=== PATIENT | female | born 1980 | race Caucasian/White ===

== ENCOUNTER 2016-10-03 12:06 | Inpatient (IN) | payer OTHER, MEDICARE ==
[~2016-10-03] VITALS: Ht 163.8 cm; Wt 70.5 kg
[~2016-10-03 12:06] MED LIST: BRIM5DRO LEFT_EYE; CLON0.252 PO; HYDR2TAB28 PO; PRAZ1CAP2 PO; PRED5DRO6 LEFT_EYE; PROM25TA14 PO; TIZA4TAB4 PO; TRAM50TA2 PO
[2016-10-03 12:14] VITALS: BP 132/77; PULSE 127; RESP 24; O2SAT 98
--- NOTE | 2016-10-03 12:35 | ED.REPORT ---
HPI-General Illness Date of Service Oct 03, 2016 ED Provider: Nallely Fong MD Patient is a 35 year old female w/ a hx of fibromyalgia who presents to the ED due to intractable vomiting and diarrhea for the past 2 days. She now reports she's, "not keeping anything down and feels like she's going to ." She was on 6mg/day Clonazepam for 3 years and has been titrating off it for the past year. She is now down to 1.25 mg Clonazepam a day, working closely with her PCP to monitor her withdrawal. She came in 4 months ago for nausea, vomiting, and stomach pain. She was hospitalized for a few nights, staff was able to normalize her symptoms through IV, and she was able to go home. Since then, she has had intermittent days of vomiting and nausea. For the past 2 weeks she has had consistent vomiting and diarrhea and has not been able to keep any medications down. Promethazine usually helps to combat her nausea. She is currently on Dilaudid (4x/day), Tramadol (50mg 4x/day), and clonazepam. She cannot remember the last time she urinated. Her PCP is Dr. Ayse Maurice at [facility]. Nursing Notes Stated Complaint: VOMITING/DIARRHEA/WITHRAWL FROM MEDS Chief Complaint: Female Abdominal Pain Nursing Notes Reviewed: Yes Allergies: Coded Allergies: acetaminophen (Verified Allergy, Unknown, 10/03/16) droperidol (Verified Allergy, Unknown, 10/03/16) ketorolac (Verified Allergy, Unknown, 10/03/16) metoclopramide (Verified Allergy, Unknown, 10/03/16) ondansetron (Verified Allergy, Unknown, it doesn't help, 10/03/16) prochlorperazine (Verified Allergy, Unknown, RECEIVED PROMEHTAZINE X1 , 10/03/16) diphenhydramine (Verified Adverse Reaction, Severe, exacerbates migraines , 10/03/16) Uncoded Allergies: ANTIHISTAMINE (Allergy, Unknown, 04/12/14) Scheduled Brimonidine Tartrate/Timolol (Combigan Eye Drops) 5 Ml Drops 1 DROP BOTH_EARS QID Clonazepam ODT (Clonazepam ODT) 0.25 Mg Tablet 0.75 MG PO BID Hydromorphone (Hydromorphone) 2 Mg Tablet 2 MG PO QID Prazosin (Prazosin) 1 Mg Capsule 4 MG PO HS Prednisolone Acetate (Prednisolone Acetate) 5 Ml Drops.susp 1 DROP LEFT_EYE QID Tizanidine (Tizanidine) 4 Mg Tablet 8 MG PO HS Tramadol (Tramadol) 50 Mg Tablet 50 MG PO QID Scheduled PRN Promethazine (Promethazine) 25 Mg Tablet 25 MG PO Q6H PRN PRN For Nausea General Time Seen by MD: 12:33 Chief Complaint Vomiting Hx Obtained From: Patient Arrived By: Walk-in Sudden in Onset?: Yes Onset Occurred: 2 days ago Symptom Duration: Since onset Location: : Abdomen Severity: Current: Moderate Recent Healthcare: Recent doctor visit, Recent hospitalization Similar Sx Previous: Yes Past Medical History Past Medical History Notes: Prior notes: PCP: Dr. Ayse Joel, fibromyalgia and chronic pain followed by a pain specialist previously on methadone but was taken off. Medications: Clonazepam- was on 2 TID, tapered to .75 BID Baclofen three times a day Prazosin 4x 1mg at bedtime 50mg tramadol 4x a day 5mg melatonin at night for sleep when needed 25mg promethazine Past Medical History Chronic pain on chronic opiates Fibromyalgia Kidney stones-1 requiring a surgery Colitis Migraines. Corneal dystrophy. PTSD. Panic disorder. Past Surgical History Bilateral cornea transplant 2014 Negative upper endoscopy in July 2015 by GI -Kidney stone removal 2005 -Right Retinal surgery 2014 -Tubal ligation -Cholecystectomy -Exploratory surgery to remove scar tissue from -Multiple C-sections Family History Family history of colitis (cousin) Reports: Diabetes mellitus Smoking History Former Smoker Social History Alcohol Use: "Social" Drug Use: Denies drug use Other Social History: Frequent ED visitor, Lives with children Ambulatory Status Independent Review of Systems Full Review of Systems Constitutional: Reports: Fatigue GI: Reports: Diarrhea, Nausea, Vomiting Complete sys rev & neg: except as marked. Physical Exam Vital Signs Vital Signs Date Time Temp Pulse Resp B/P Pulse Ox O2 Delivery O2 Flow Rate FiO2 10/03/16 12:14 37.0 127 24 132/77 98 Room Air Initial VS: Reviewed ENT: Mucous membranes moist, Conjunctiva normal, No scleral icterus Neck: Supple, Non-tender, Full range of motion Respiratory: Breath sounds normal, Clear to auscultation, No respiratory distress Abdomen / GI: Soft, Non-tender, No guarding, No rebound, No distention Back: No CVA tenderness Extremities: Vascular intact, Neuro intact, No swelling, No tenderness Skin: Warm, Dry, No cyanosis Neurologic: Alert, Oriented, Nonfocal Psychiatric: Mood/affect normal, Behavior normal, Normal thought content General/Constitutional: Awake, Alert, Cooperative Behavior: Positive: Tearful muscles twitching tremulous Head / Eyes: Atraumatic, Normocephalic pupils wildly diilated Heart Sounds / Murmur: Positive: Systolic murmur present.. (III/, early, harsh) heart rate is 130 Interpretation & Diagnostics Lab Results Interpretation Result Diagram: 10/03/16 1250 10/03/16 1250 Test 10/03/16 12:50 10/03/16 14:40 White Blood Count 9.0th/mm3 (3.8-10.1) Red Blood Count 4.69mil/mm3 (3.90-5.20) Hemoglobin 14.5g/dL (12.0-15.6) Hematocrit 42.4% (35.0-46.0) Mean Corpuscular Volume 90.4fL (81-100) Mean Corpuscular Hemoglobin 30.9pg (27.0-35.0) Mean Corpuscular Hemoglobin Concent 34.2% (32.0-37.0) Red Cell Distribution Width 12.4% (12.3-15.4) Platelet Count 305bil/L (150-400) Neutrophils (%) (Auto) 90.4% (40-74) Lymphocytes (%) (Auto) 6.2% (14-46) Monocytes (%) (Auto) 2.8% (4-12) Eosinophils (%) (Auto) 0.1% (0-5) Basophils (%) (Auto) 0.3% (0-3) Sodium Level 139mEq/L (134-144) Potassium Level 4.0mEq/L (3.5-5.2) Chloride Level 102mEq/L (97-108) Carbon Dioxide Level 22mmol/L (18-29) Blood Urea Nitrogen 6mg/dL (6-20) Creatinine 0.84mg/dL (0.57-1.00) Estimat Glomerular Filtration Rate 110mL/min (>59) Glucose Level 136mg/dL (60-99) Calcium Level 8.7mg/dL (8.5-10.1) Magnesium Level 1.9mg/dL (1.6-2.6) Total Bilirubin 0.4mg/dL (0.0-1.2) Aspartate Amino Transf (AST/SGOT) 22U/L (0-50) Alanine Aminotransferase (ALT/SGPT) 47U/L (0-32) Alkaline Phosphatase 107U/L (25-150) Total Protein 7.2g/dL (6.4-8.4) Albumin 4.5g/dL (3.4-5.0) Lipase 31U/L (13-60) Hold Peraza Top Tube Received (Received) Hold Urine Received (Received) Re-Eval/Medical Decision Med Decision/Clinical Course Presents with intractable nausea vomiting diarrhea. Symptoms for 4 days. has not been able to keep any of her routine pain medication or anxiety medication down. Now having exacerbated symptoms due to narcotic and benzodiazepine withdrawal. No evidence of drug-seeking behavior, early refills on medications, and prescriptions per one provider without early or lost prescriptions. Tried backup plan and close workup with her primary care provider to avoid coming to the ER and at this 0.48 hours with no void and continued diarrhea and is feeling miserable. In the emergency room she is given 2 L of fluid IV Phenergan and IV Ativan and IV Dilaudid continues to have vomiting and diarrhea. After 4 hours opted for admission overnight with continued treatment is oral administration of medications able to keep fluids down hopefully home within 24 hours Consultation : Consulted With: Hospitalist Call Returned at: 16:33 Product Safety Associate: Will see patient, Agrees with plan, Accepts admit Counseled Regarding: Diagnosis, Lab results, Need for follow-up, When/why to return to ED Discharge & Departure Primary Impression: Nausea, vomiting, and diarrhea Additional Impressions: Dehydration Abdominal pain Disposition: ADMITTED TO HOSPITAL Discharge Condition All VS Reviewed: Yes Condition: Stable Referrals: NOPCP (PCP) Scribe Attestation Portion of this note were transcribed by Evelin Pantoja. I, Dr. Fong, personally performed the history, physical exam, and medical decision-making: I reviewed and confirmed the accuracy for the information in the transcribed note. Signed by: glenn White, 2/24/17 1500 copies to: Ayse Joel PA-C, Shawna L MD Oct 03, 2016 12:35 EVELIN PANTOJA Oct 03, 2016 13:24
[2016-10-03] MEDS ORDERED: 0.9% Sodium Chloride 1,000 ML IV ONE ×3 (13:02→16:25)
[2016-10-03] MEDS ORDERED: Promethazine Inj 25 MG in Dextrose 5%-Pha MIX 50 ML IV ONE ×2 (13:05→16:25)
[2016-10-03] MEDS ORDERED: HYDROmorphone 1 mg/mL Inj IVPUSH ONE ×2 (13:05→16:45)
[2016-10-03 13:13] LABS: BASOPHILS % (AUTO) 0.3 % (0-3); EOSINOPHILS % (AUTO) 0.1 % (0-5); MONOCYTES % (AUTO) 2.8 % (4-12); Mean Corpuscular Hemoglobin 30.9 pg (27.0-35.0); Mean Corpuscular Volume 90.4 fL (81-100); NEUTROPHILS % (AUTO) 90.4 % (40-74); Platelet Count 305 bil/L (150-400)
[2016-10-03 13:35] LABS: Magnesium 1.9 mg/dL (1.6-2.6)
[2016-10-03] MEDS: HYDROmorphone 1 mg/mL Inj IVPUSH PRN ×3 (14:43→21:37)
[2016-10-03] MEDS ORDERED: Ondansetron 2 mg/mL 2 mL Inj IVPUSH PRN (16:25)
[2016-10-03] MEDS ORDERED: HYDROmorphone Inj 2 MG in 0.9% Sodium Chloride 100 ML IV ONE (16:25)
[2016-10-03] MEDS ORDERED: Alum-Mag Hydrox-Simeth 30 mL Suspension PO PRN ×2 (16:25→20:35)
[2016-10-03] MEDS ORDERED: KLO5T PO (17:36)
[2016-10-03] MEDS ORDERED: ASPI-1148 PO (17:40)
[2016-10-03] MEDS ORDERED: CLON0.1T PO (17:41)
[2016-10-03 18:23] VITALS: BP 118/77; PULSE 79; RESP 20; O2SAT 99
[2016-10-03 19:22] VITALS: BP 106/73; PULSE 67; RESP 20; O2SAT 100
[2016-10-03] MEDS ORDERED: Polyethylene Glycol (PEG) 17 Gm Powder PO PRN (20:35)
[2016-10-03] MEDS ORDERED: cloNIDine 0.1 mg Tablet PO PRN (20:40)
--- NOTE | 2016-10-03 20:56 | PCM.HPMED ---
Subjective Date of Service Oct 03, 2016 Primary Provider: Admitting Physician: Anh Senior MD Primary Care Physician: Ayse Joel PA-C Attending Physician: Anh Senior MD Chief Complaint: Nausea, vomiting, diarrhea. Worsening chronic pain since unable to keep medications down History of Present Illness: Patient has had intermittent problems with nausea vomiting and diarrhea past. Now the last 2 weeks she is having this intermittently and is wondering if it is related to her clonazepam taper. She saw her primary care physician 3 days ago heart rate but thought she was doing okay overall. Then 2 days ago her nausea vomiting and diarrhea returned and she has been unable to keep fluids down. She says the last time she urinated was 2 days ago. She received, according to her, 3 L of IVF in the emergency Department and is now making urine but not as much as she would expect, so she feels she is still quite dehydrated. She says she was hospitalized last May for a similar problem and the IV Dilaudid and IV Ativan and IV Phenergan quite effective. She feels this time is a little bit different than last time, she feels worse, diarrhea is worse. Her stools are liquid and brown but no blood has been noted. She has not had any fever, chills, sweats. Her chronic pain is worse especially since she cannot keep down her oral Dilaudid. She has chronic pain "all over" but does not feel that it is same as flulike symptoms. No else at home is ill and she has not been traveling. She says she has severe dystonic reactions to almost all nausea medication and Phenergan is the only one she can tolerate. Review of Systems: Unremarkable except as above Allergies Coded Allergies: acetaminophen (Verified Allergy, Unknown, 10/03/16) droperidol (Verified Allergy, Unknown, 10/03/16) ketorolac (Verified Allergy, Unknown, 10/03/16) metoclopramide (Verified Allergy, Unknown, 10/03/16) prochlorperazine (Verified Allergy, Unknown, RECEIVED PROMEHTAZINE X1 , 10/03/16) diphenhydramine (Verified Adverse Reaction, Severe, exacerbates migraines , 10/03/16) Uncoded Allergies: ANTIHISTAMINE (Allergy, Unknown, 04/12/14) Home Medications Dilaudid 2 mg orally 4 times a day Prazosin 5 mg at bedtime Tizanidine 8 mg at bedtime and occasionally another 4 mg in the middle of the night Clonazepam, 0.5 mg in the morning and 0.75 mg in the evening Phenergan 25 mg orally every 6 hours when necessary nausea and vomiting Tramadol 50 mg 4 times a day Prednisolone eyedrops 1 drop left eye 3 times a day Timolol/Brimonidine eyedrops 1 drop in the left eye twice a day PMH Chronic pain on chronic narcotics Migraines Episodic intractable nausea and vomiting Corneal dystrophy Fibromyalgia PTSD Panic disorder and chronic anxiety She says she has been told she has a heart murmur Surgical History 2 C-sections Cholecystectomy Corneal transplant Exploratory laparotomy for lysis of adhesions Tubal ligation Social History Occupation: disabled Hx Alcohol Use: No Hx Substance Use: No (prescription narcotics dependance) Smoking Status: Former Smoker Living Arrangement: with Family (, has 3 children ages 13, 15 and 18) Exam Vital Signs Vital Sign - Last Date Time Temp Pulse Resp B/P Pulse Ox O2 Delivery O2 Flow Rate FiO2 10/03/16 19:22 36.9 67 20 106/73 100 Room Air Exam General: Alert and oriented, mild anxiety, mild hand tremor HEENT: unremarkable Neck: No JVD, carotids 2+ Heart: Regular Lungs: Clear Abdomen: Soft, non-tender, normal bowel tones, no apparent masses or hepatosplenomegaly Extremities: No pedal edema Neuro: No apparent deficit Lab and Diagnostics Result Diagram: 10/03/16 1250 10/03/16 1250 Assessment & Plan Nausea, vomiting, and diarrhea which have been intermittent problems for her. So far no evidence of viral gastroenteritis or other acute, infectious disease. Her urinalysis is still pending. Once vomiting progresses and she is not able to keep down her oral Dilaudid and situation is complicated by withdrawal symptoms. She is being admitted for IV fluids, and will give IV Dilaudid, IV Ativan, IV Phenergan which she feels was quite effective during her last hospitalization in May. VTE Mechanical Devices: Intermittant Pneumatic CD Anh Senior MD Oct 03, 2016 20:56 Anh Senior MD Oct 03, 2016 20:56
[2016-10-03] MEDS: 0.9% Sodium Chloride 1,000 ML IV SCH (21:02)
[2016-10-03] MEDS: Promethazine Inj 25 MG in Dextrose 5%-Pha MIX 50 ML IV PRN (21:58)
[2016-10-03] MEDS: PrednisoLONE 1% 5 mL Ophthalmic Suspension LEFT_EYE SCH (22:01)
[2016-10-03] MEDS: Brimonidine-Timolol 5 mL Ophthalmic Solution LEFT_EYE SCH ×2 (23:00→23:40)
[2016-10-03 23:33] VITALS: BP 116/73; PULSE 88; RESP 20; O2SAT 98
[2016-10-04] MEDS: HYDROmorphone 1 mg/mL Inj IVPUSH PRN ×7 (00:43→21:34)
--- NOTE | 2016-10-04 03:37 | NUR ---
Pain/Emesis Pt. had an episode of emesis earlier in shift. Pt. threw up PO Dilaudid and Tramadol. Pt. was given IV Phenagren and IV Dilaudid. Pt. reported less pain and nausea. Will continue to monitor.
[2016-10-04] MEDS: Promethazine Inj 25 MG in Dextrose 5%-Pha MIX 50 ML IV PRN ×4 (04:02→23:00)
[2016-10-04 05:25] VITALS: BP 96/59; PULSE 81; RESP 20; O2SAT 97
[2016-10-04] MEDS: 0.9% Sodium Chloride 1,000 ML IV SCH ×2 (07:50→18:33)
[2016-10-04] MEDS: Famotidine Inj 20 MG in IV Premix 1 EACH IV SCH ×2 (07:52→20:26)
[2016-10-04] MEDS: PrednisoLONE 1% 5 mL Ophthalmic Suspension LEFT_EYE SCH ×3 (08:09→20:19)
[2016-10-04] MEDS: Brimonidine-Timolol 5 mL Ophthalmic Solution LEFT_EYE SCH (08:09)
--- NOTE | 2016-10-04 10:38 | NUR ---
Case Management D: [facility] prescription monitoring information placed in chart. Dr Judy kauffman.
--- NOTE | 2016-10-04 14:10 | PCM.PNMED ---
Subjective Date of Service Oct 04, 2016 Subjective Patient still complaining of abdominal pain and intermittent nausea vomiting. She notes that the loose stool has subsided. Exam Vital Signs Vital Sign - Last Date Time Temp Pulse Resp B/P Pulse Ox O2 Delivery O2 Flow Rate FiO2 10/04/16 05:25 36.5 81 20 96/59 97 Room Air Intake and Output 10/03/16 10/03/16 10/04/16 Cumulative From/Thru 14:59 22:59 06:59 10/03/16 12:14 - 10/04/16 05:54 Intake Total 1000 ml 2000 ml 877 ml 3877 ml Balance 1000 ml 2000 ml 877 ml 3877 ml IV Total 1000 ml 2000 ml 877 ml 3877 ml Exam Constitutional: Middle-aged female in mild discomfort Head: Normocephalic atraumatic Chest: Clear to auscultation Cor: Regular rate and rhythm S1-S2 without murmur Abdomen: Soft, tender in epigastrium, no rebound no guarding bowel sounds are present. Extremities: No pedal edema Psych: Slightly anxious Neuro: Alert and oriented 3 motor strength is intact bilaterally Lab and Diagnostics Result Diagram: 10/03/16 1250 10/03/16 1250 Assessment & Plan # Recurrent acute nausea vomiting diarrhea, present on admission Patient is continuing to have some symptoms although the diarrhea has subsided. We will back her diet down to clear liquids Continue with medications as ordered on admission # Chronic problems as listed below:Chronic pain on chronic narcotics Migraines Episodic intractable nausea and vomiting Corneal dystrophy Fibromyalgia PTSD Panic disorder and chronic anxiety Pain Evaluation: Adequate Pain Control GI Prophylaxis: H2 ayaz VTE Prophylaxis: Sub-Q Enoxaparin VTE Mechanical Devices: Intermittant Pneumatic CD Resuscitation Status: CPR: Attempt Resuscitation Time spent 30 minutes Jada Kim MD Oct 04, 2016 14:10
[2016-10-04 14:39] VITALS: BP 100/60; PULSE 86; RESP 18; O2SAT 97
--- NOTE | 2016-10-04 15:37 | NUR ---
Social Work- Initial Assessment Data: See Initial Assessment. Pt is a 35 year old female admitted 10/03/16 for intractable vomiting per H&P. Pt's insurance is [employer] and Medicare. PCP is Ayse Joel PA-C. EMR reviewed. SW spoke with pt at bedside to discuss discharge planning, SW role explained. Pt alert and oriented x3. Pt resides at home in [place] with her and two children where she remains independent with her ADLs. Pt does not use any DME and drives. Pt has no HH or SNF history. SW discussed DPOA/Advanced Directive with patient. Pt completed the form 10+ years ago. SW encouraged pt to bring in copy of form to hospital. Pt has no anticipated discharge needs. SW provided phone number and plan on whiteboard. Patient to discharge home with to transport via POV. SW continues to follow. Assessment: [place] independent [place] base. Plan: Patient to discharge home with to transport via POV. No anticipated discharge needs. SW continues to follow. Arminda Cavazos HEALTH CARE SOCIAL WORKER Addendum: 10/04/16 at 1545 by CHRISSY CAVAZOS SS Amended: Links added.
--- NOTE | 2016-10-04 18:23 | NUR ---
Pain/Emesis Pt with increased pain at start of shift. Per RN and pt report, pt stating feeling behind in pain. Stated dosage at longer interval than usual. Stated pain so bad she was nauseous. No emesis at that time. Pt on general diet - emesis post breakfast as well as lunch. Per pt, I was able to keep some of it down but not all of it. In afternoon, pt able to sleep and later awoke d/t pain. Afternoon pain meds given. Pt appreciative, wanting to go home. Video call with family and afterwards feeling anxious. 1mg IVP Ativan given. Pt calmed and watching tv in bed. Care continues.
[2016-10-04 19:43] VITALS: BP 104/66; PULSE 84; RESP 18; O2SAT 97
[2016-10-05] MEDS: HYDROmorphone 1 mg/mL Inj IVPUSH PRN ×8 (00:32→23:24)
[2016-10-05 04:07] VITALS: BP 96/56; PULSE 74; RESP 18; O2SAT 96
[2016-10-05] MEDS: 0.9% Sodium Chloride 1,000 ML IV SCH ×2 (05:30→14:27)
--- NOTE | 2016-10-05 05:50 | NUR ---
pain: pt. woke from deep sleep, "shaking all over, having terrible abdominal pain," not relieved by po dilaudid, iv dilaudid given. Pt. has been requesting iv dilaudid q3hrs around the clock. pt. also requesting iv ativan as she became tearful.
--- NOTE | 2016-10-05 07:41 | PCM.PNMED ---
Subjective Date of Service Oct 05, 2016 Subjective Patient continuing to have upper abdominal pain with nausea. She denies significant emesis. Has not had a bowel movement since she has been in here. Denies any fevers or chills. Exam Vital Signs Vital Sign - Last Date Time Temp Pulse Resp B/P Pulse Ox O2 Delivery O2 Flow Rate FiO2 10/05/16 04:07 36.8 74 18 96/56 96 Room Air Intake and Output 10/04/16 10/04/16 10/05/16 Cumulative From/Thru 14:59 22:59 06:59 10/03/16 12:14 - 10/05/16 06:03 Intake Total 750 ml 2085 ml 1763 ml 8475 ml Output Total 1200 ml 602 ml 1100 ml 2902 ml Balance -450 ml 1483 ml 663 ml 5573 ml Intake Oral 750 ml 800 ml 674 ml 2224 ml IV Total 1285 ml 1089 ml 6251 ml Output Urine Total 1200 ml 600 ml 1100 ml 2900 ml Emesis 2 ml 2 ml # Voids 3 3 # Bowel Movements 0 0 0 Exam Constitutional: Young female in moderate pain distress Head: Normocephalic atraumatic Chest: Clear to auscultation Cor: Regular rate and rhythm S1-S2 without murmur Abdomen: Soft there is tenderness in the epigastrium no rebound no guarding bowel sounds are present Extremities: No pedal edema Psych: Patient appears slightly anxious Neuro: Alert and oriented 3, motor strength is intact bilaterally Lab and Diagnostics Laboratory Tests 72 Hours Test 10/03/16 12:50 10/03/16 14:40 White Blood Count 9.0th/mm3 (3.8-10.1) Red Blood Count 4.69mil/mm3 (3.90-5.20) Hemoglobin 14.5g/dL (12.0-15.6) Hematocrit 42.4% (35.0-46.0) Mean Corpuscular Volume 90.4fL (81-100) Mean Corpuscular Hemoglobin 30.9pg (27.0-35.0) Mean Corpuscular Hemoglobin Concent 34.2% (32.0-37.0) Red Cell Distribution Width 12.4% (12.3-15.4) Platelet Count 305bil/L (150-400) Neutrophils (%) (Auto) 90.4% (40-74) Lymphocytes (%) (Auto) 6.2% (14-46) Monocytes (%) (Auto) 2.8% (4-12) Eosinophils (%) (Auto) 0.1% (0-5) Basophils (%) (Auto) 0.3% (0-3) Sodium Level 139mEq/L (134-144) Potassium Level 4.0mEq/L (3.5-5.2) Chloride Level 102mEq/L (97-108) Carbon Dioxide Level 22mmol/L (18-29) Blood Urea Nitrogen 6mg/dL (6-20) Creatinine 0.84mg/dL (0.57-1.00) Estimat Glomerular Filtration Rate 110mL/min (>59) Glucose Level 136mg/dL (60-99) Calcium Level 8.7mg/dL (8.5-10.1) Magnesium Level 1.9mg/dL (1.6-2.6) Total Bilirubin 0.4mg/dL (0.0-1.2) Aspartate Amino Transf (AST/SGOT) 22U/L (0-50) Alanine Aminotransferase (ALT/SGPT) 47U/L (0-32) Alkaline Phosphatase 107U/L (25-150) Total Protein 7.2g/dL (6.4-8.4) Albumin 4.5g/dL (3.4-5.0) Lipase 31U/L (13-60) Hold Peraza Top Tube Received (Received) Hold Urine Received (Received) Result Diagram: 10/03/16 1250 10/03/16 1250 Assessment & Plan # Recurrent acute nausea vomiting diarrhea, present on admission Patient is continuing to have some symptoms although the diarrhea has subsided. We will back her diet down to clear liquids Continue with medications as ordered on admission Persistent epigastric discomfort with nausea but currently without vomiting or diarrhea Will DC IV famotidine and place her on IV Protonix Check labs today We will proceed with CT of abdomen and pelvis with contrast # Chronic problems as listed below:Chronic pain on chronic narcotics Migraines Episodic intractable nausea and vomiting Corneal dystrophy Fibromyalgia PTSD Panic disorder and chronic anxiety GI Prophylaxis: H2 ayaz VTE Prophylaxis: Sub-Q Enoxaparin VTE Mechanical Devices: Intermittant Pneumatic CD Resuscitation Status: CPR: Attempt Resuscitation Time spent 30 minutes Jada Kim MD Oct 05, 2016 07:41
[2016-10-05 08:30] LABS: BASOPHILS % (AUTO) 0.5 % (0-3); EOSINOPHILS % (AUTO) 2.5 % (0-5); MONOCYTES % (AUTO) 5.9 % (4-12); Mean Corpuscular Hemoglobin 30.4 pg (27.0-35.0); Mean Corpuscular Volume 91.8 fL (81-100); NEUTROPHILS % (AUTO) 51.4 % (40-74); Platelet Count 266 bil/L (150-400)
[2016-10-05 08:35] VITALS: BP 96/59; PULSE 71; RESP 18; O2SAT 97
[2016-10-05] MEDS: Brimonidine-Timolol 5 mL Ophthalmic Solution LEFT_EYE SCH ×2 (08:41→20:34)
[2016-10-05] MEDS: PrednisoLONE 1% 5 mL Ophthalmic Suspension LEFT_EYE SCH ×3 (08:41→20:34)
[2016-10-05] MEDS: Promethazine Inj 25 MG in Dextrose 5%-Pha MIX 50 ML IV PRN ×3 (08:42→20:52)
--- NOTE | 2016-10-05 09:24 | NUR ---
KIET signed. Arminda Roa CLERICAL ASSIGNER
--- NOTE | 2016-10-05 11:10 | DRSVH ---
PROCEDURE: CT ABDOMEN AND PELVIS WITH CONTRAST ([id number]) INDICATIONS: abdominal pain TECHNIQUE: After the administration of oral and intravenous contrast, 5 mm thick sections acquired from the diap hragms to the symphysis. 5 mm thick coronal and sagittal reformats were performed. For radiation do se reduction, the following was used: automated exposure control, adjustment of mA and/or kV accordi ng to patient size. COMPARISON: [facility], CT, CT ABD PELVIS W CON, 06/06/2016, 18:11. FINDINGS: Image quality: Excellent. ABDOMEN: Lung bases: Lung bases are clear. Heart size is normal. Solid organs: Liver and spleen are normal in size and enhancement. There is a small area of fatty in filtration near the falciform ligament in the medial segment of the left lobe. Gallbladder has been r emoved.. Biliary system is non-dilated. Pancreas enhances normally. No adrenal nodules. Kidneys a re normal in size and enhancement, without hydronephrosis. Peritoneum and bowel: Stomach, small bowel, and colon loops are normal in caliber and wall thickness . No free fluid or air. There is a normal appendix. Nodes and vessels: No retroperitoneal or mesenteric adenopathy. Aorta and inferior vena cava are no rmal in caliber. Miscellaneous: No ventral hernias. PELVIS: Genitourinary: Bladder wall thickness is normal. The prominent abnormality of uterus or ovaries is seen Miscellaneous: No inguinal hernias or adenopathy. Bones: No suspicious bony lesions. No vertebral body compression fractures. IMPRESSION: 1. Cause of abdominal pain in the right upper quadrant is not identified. There's been previous jodee cystectomy. No abnormality of the biliary tree or pancreas a suggestion of inflammation is seen. 2. Right kidney and appendix are normal. Bowel loops are normal and lung bases are clear. Dictated by: Kelechi Pritchard M.D. on 10/05/2016 at 11:02 Approved by: Kelechi Pritchard M.D. on 10/05/2016 at 11:08
[2016-10-05] MEDS: Pantoprazole 4 mg/mL 10 mL Inj IVPUSH SCH (16:21)
[2016-10-05 16:24] VITALS: BP 105/69; PULSE 77; RESP 18; O2SAT 99
--- NOTE | 2016-10-05 18:01 | NUR ---
Pain/Anxiety/Nausea Patient alert and oriented x3, up independently in room, no reports of SOB, BP slightly hypotensive this AM with systolic 96, all other vital signs within normal limits, afebrile, voiding adequately without complication. Patient reported 7/10 pain consistently throughout shift in abdomen/generalized, administered 2mg IV Dilaudid Q3 hours throughout shift in addition to scheduled Toradol and PO Dilaudid -- pt reported continued pain. Patient would become tearful intermittently, stating "I'm just shaking really bad and my anxiety is starting to creep back up". Administered 1mg IV Ativan Q4 PRN x2, patient would report slight relief but consistent pain. Patient requested IV Phenergan, administered x2. No emesis. One khalida smart BM per MILL STENCILER. Addendum: 10/05/16 at 1813 by TASHI SULLIVAN RN correction: patient did not have BM.
[2016-10-05 20:20] VITALS: BP 104/67; PULSE 84; RESP 18; O2SAT 98
[2016-10-06] MEDS: 0.9% Sodium Chloride 1,000 ML IV SCH ×2 (01:19→12:34)
[2016-10-06] MEDS: HYDROmorphone 1 mg/mL Inj IVPUSH PRN ×8 (02:23→23:31)
[2016-10-06] MEDS: Promethazine Inj 25 MG in Dextrose 5%-Pha MIX 50 ML IV PRN ×3 (03:27→19:44)
--- NOTE | 2016-10-06 03:44 | NUR ---
Pain/anxiety/nausea Pt reporting increasing abdominal pain 03/19 and requiring Dilaudid IV 2mg q3 hrs. Pt also taking scheduled Tramadol and PO Dilaudid q6 hrs. Pt is on clear liquid diet and reporting intermittent nausea, no emesis noted. IV Phenergan given q 6 hrs with relief per pt. Pt also reporting increased anxiety due to pain. Pt is taking Ativan 1mg IV q 4hrs. Pt reporting she has been dozing off but unable to get any substantial sleep tonight. Continue to monitor.
[2016-10-06 05:57] VITALS: BP 94/59; PULSE 69; RESP 16; O2SAT 95
[2016-10-06 06:43] LABS: BASOPHILS % (AUTO) 0.6 % (0-3); EOSINOPHILS % (AUTO) 3.3 % (0-5); MONOCYTES % (AUTO) 6.7 % (4-12); Mean Corpuscular Hemoglobin 30.5 pg (27.0-35.0); Mean Corpuscular Volume 91.7 fL (81-100); NEUTROPHILS % (AUTO) 54.6 % (40-74); Platelet Count 258 bil/L (150-400)
[2016-10-06] MEDS: Pantoprazole 4 mg/mL 10 mL Inj IVPUSH SCH ×2 (08:34→17:41)
[2016-10-06] MEDS: Brimonidine-Timolol 5 mL Ophthalmic Solution LEFT_EYE SCH ×2 (10:05→20:44)
[2016-10-06] MEDS: PrednisoLONE 1% 5 mL Ophthalmic Suspension LEFT_EYE SCH ×3 (10:05→20:44)
--- NOTE | 2016-10-06 12:09 | NUR ---
Social Work- Continued D/C Planning Data: EMR reviewed. Pt is on day 3 of hospitalization for intractable vomiting per H&P. Pt is not medically stable for discharge. Per MD in rounds, pt continues to have abdominal pain and require pain management. Pt has been up independent in room. Pt to discharge home with to transport via POV. No anticipated discharge needs. SW continues to follow. Assessment: [place] Plan: Pt to discharge home with to transport via POV pending clinical course. No anticipated discharge needs. SW continues to follow. RADHA Tomas
[2016-10-06] MEDS ORDERED: Sodium Biphos-Phos 133 mL Enema RECTAL ONE (13:40)
--- NOTE | 2016-10-06 13:41 | PCM.PNMED ---
Subjective Date of Service Oct 06, 2016 Subjective Patient continues with epigastric pain. She has had nausea. She has had no vomiting over the past 48 hours. She denies any diarrhea has been passing gas but has not had a bowel movement since her last diarrhea about 2 days ago. Exam Vital Signs Vital Sign - Last Date Time Temp Pulse Resp B/P Pulse Ox O2 Delivery O2 Flow Rate FiO2 10/06/16 05:57 36.7 69 16 94/59 95 Room Air Intake and Output 10/05/16 10/05/16 10/06/16 Cumulative From/Thru 14:59 22:59 06:59 10/03/16 12:14 - 10/06/16 06:49 Intake Total 1781 ml 1748 ml 06801 ml Output Total 1100 ml 1000 ml 5002 ml Balance 681 ml 748 ml 7002 ml Intake Oral 640 ml 584 ml 3448 ml IV Total 1141 ml 1164 ml 8556 ml Output Urine Total 1100 ml 1000 ml 5000 ml Emesis 2 ml # Voids 1 4 # Bowel Movements 0 0 Exam Constitutional: Young female in pain distress Head: Normocephalic atraumatic Chest: Clear to auscultation Cor: Regular rate and rhythm S1-S2 without murmur Abdomen: Soft tender in the epigastrium and right upper quadrant, no rebound no guarding Extremities: No pedal edema Neuro: Alert and oriented 3, motor strength is intact bilaterally Lab and Diagnostics Laboratory Tests 72 Hours Test 10/03/16 14:40 10/05/16 08:10 10/06/16 06:10 Hold Urine Received (Received) White Blood Count 5.9th/mm3 (3.8-10.1) 5.1th/mm3 (3.8-10.1) Red Blood Count 3.92mil/mm3 (3.90-5.20) 3.87mil/mm3 (3.90-5.20) Hemoglobin 11.9g/dL (12.0-15.6) 11.8g/dL (12.0-15.6) Hematocrit 36.0% (35.0-46.0) 35.5% (35.0-46.0) Mean Corpuscular Volume 91.8fL (81-100) 91.7fL (81-100) Mean Corpuscular Hemoglobin 30.4pg (27.0-35.0) 30.5pg (27.0-35.0) Mean Corpuscular Hemoglobin Concent 33.1% (32.0-37.0) 33.2% (32.0-37.0) Red Cell Distribution Width 12.2% (12.3-15.4) 12.0% (12.3-15.4) Platelet Count 266bil/L (150-400) 258bil/L (150-400) Neutrophils (%) (Auto) 51.4% (40-74) 54.6% (40-74) Lymphocytes (%) (Auto) 39.7% (14-46) 34.8% (14-46) Monocytes (%) (Auto) 5.9% (4-12) 6.7% (4-12) Eosinophils (%) (Auto) 2.5% (0-5) 3.3% (0-5) Basophils (%) (Auto) 0.5% (0-3) 0.6% (0-3) Sodium Level 140mEq/L (134-144) 140mEq/L (134-144) Potassium Level 4.3mEq/L (3.5-5.2) 4.4mEq/L (3.5-5.2) Chloride Level 105mEq/L (97-108) 105mEq/L (97-108) Carbon Dioxide Level 24mmol/L (18-29) 29mmol/L (18-29) Blood Urea Nitrogen 4mg/dL (6-20) 3mg/dL (6-20) Creatinine 0.78mg/dL (0.57-1.00) 0.72mg/dL (0.57-1.00) Estimat Glomerular Filtration Rate 120mL/min (>59) 131mL/min (>59) Glucose Level 90mg/dL (60-99) 84mg/dL (60-99) Calcium Level 7.7mg/dL (8.5-10.1) 8.1mg/dL (8.5-10.1) Total Bilirubin 0.3mg/dL (0.0-1.2) 0.5mg/dL (0.0-1.2) Aspartate Amino Transf (AST/SGOT) 19U/L (0-50) 15U/L (0-50) Alanine Aminotransferase (ALT/SGPT) 32U/L (0-32) 27U/L (0-32) Alkaline Phosphatase 87U/L (25-150) 80U/L (25-150) Total Protein 5.1g/dL (6.4-8.4) 5.1g/dL (6.4-8.4) Albumin 3.4g/dL (3.4-5.0) 3.4g/dL (3.4-5.0) Lipase 19U/L (13-60) Result Diagram: 10/06/1610 10/06/1610 X-Rays, CTs and MRIs PROCEDURE: CT ABDOMEN AND PELVIS WITH CONTRAST ([id number]) INDICATIONS: abdominal pain TECHNIQUE: After the administration of oral and intravenous contrast, 5 mm thick sections acquired from the diaphragms to the symphysis. 5 mm thick coronal and sagittal reformats were performed. For radiation dose reduction, the following was used : automated exposure control, adjustment of mA and/or kV according to patient size. COMPARISON: [facility], CT, CT ABD PELVIS W CON, 06/06/2016, 18:11. FINDINGS: Image quality: Excellent. ABDOMEN: Lung bases: Lung bases are clear. Heart size is normal. Solid organs: Liver and spleen are normal in size and enhancement. There is a small area of fatty infiltration near the falciform ligament in the medial segment of the left lobe. Gallbladder has been removed.. Biliary system is non- dilated. Pancreas enhances normally. No adrenal nodules. Kidneys are normal in size and enhancement, without hydronephrosis. Peritoneum and bowel: Stomach, small bowel, and colon loops are normal in caliber and wall thickness. No free fluid or air. There is a normal appendix. Nodes and vessels: No retroperitoneal or mesenteric adenopathy. Aorta and inferior vena cava are normal in caliber. Miscellaneous: No ventral hernias. PELVIS: Genitourinary: Bladder wall thickness is normal. The prominent abnormality of uterus or ovaries is seen Miscellaneous: No inguinal hernias or adenopathy. Bones: No suspicious bony lesions. No vertebral body compression fractures. IMPRESSION: 1. Cause of abdominal pain in the right upper quadrant is not identified. There' s been previous cholecystectomy. No abnormality of the biliary tree or pancreas a suggestion of inflammation is seen. 2. Right kidney and appendix are normal. Bowel loops are normal and lung bases are clear. Dictated by: Kelechi Pritchard M.D. on 10/05/2016 at 11:02 Approved by: Kelechi Pritchard M.D. on 10/05/2016 at 11:08 Assessment & Plan # Recurrent acute nausea vomiting diarrhea, present on admission Patient is continuing to have some symptoms although the diarrhea has subsided. We will back her diet down to clear liquids Continue with medications as ordered on admission Persistent epigastric discomfort with nausea but currently without vomiting or diarrhea Will DC IV famotidine and place her on IV Protonix Check labs today which show no abnormalities We will proceed with CT of abdomen and pelvis with contrast which did not see any abnormalities explaining her pain. We will initiate hyoscyamine sublingual 4 times a day Phone call put in to GI for consultation. I did speak with Dr. Santizo who reviewed the CT of abdomen and pelvis and notes stool present throughout the colon and recommends a fleets enema 1 and repeat in one hour if no results from the first one. He will see the patient later this afternoon. Appreciate GI expert assistance. # Chronic problems as listed below:Chronic pain on chronic narcotics Migraines Episodic intractable nausea and vomiting Corneal dystrophy Fibromyalgia PTSD Panic disorder and chronic anxiety GI Prophylaxis: H2 ayaz VTE Prophylaxis: Sub-Q Enoxaparin VTE Mechanical Devices: Intermittant Pneumatic CD Resuscitation Status: CPR: Attempt Resuscitation Time spent 30 minutes Jada Kim MD Oct 06, 2016 13:40
--- NOTE | 2016-10-06 14:43 | NUR ---
NUTRITION ASSESSMENT Assess: 35 YO F admitted for intractable N/V, diarrhea. Pt has been on clear liquid diet X 3 days. PMHX: Chronic pain, migraines, episodic N/V, corneal dystrophy, fibromyalgia, panic disorder, PTSD, anxiety. DIET: Clear liquids. PO intake 50-100%. LABS: BUN 3, Ca 8.1 MEDICATIONS: Reviewed. GI: No BM noted. Diarrhea improved per notes. SKIN: No issues noted. WEIGHT: 70.5 kg, BMI 26.3 kg/m2 ESTIMATED NEEDS: Calories: 0789-5400 kcal/day (25-30 kcal/kg BW) Protein: 56-85 g/day (0.8-1.2 g/kg BW) NUTRITION DIAGNOSIS: 1) Inadequate oral intake related to decreased ability to consume sufficient energy as evidenced by clear liquid diet X 3 days, n/v. INTERVENTION: 1) Will await timely advancement of diet. MONITOR/EVALUATE: PO intake, diet advance/tolerance, labs, GI/nutrition status. Follow per moderate nutrition risk guidelines.
[2016-10-06 16:27] VITALS: BP 107/71; PULSE 71; RESP 16; O2SAT 98
--- NOTE | 2016-10-06 18:15 | NUR ---
Pain/Anxioety/nausea/Enema Pt pain kept between 7-8/10 today with Scheduled PO dilaudid and PRN IV Dilaudid ever [id number]. Pt very anxious this am, administered IV Ativan x1 this shift. pt stated it helped calm her down a lot. Pt complaining of nausea, IV Phenergan administered once this shift. pt stated nausea manageable. Enema ordered, pt very anxious, gave Valium prior to Enema, pt tolerated well, was successful
[2016-10-06 20:26] VITALS: BP 110/75; PULSE 78; RESP 16; O2SAT 95
--- NOTE | 2016-10-06 23:29 | CONS ---
[address] [address] CONSULTATION REPORT PATIENT: LISANDRA MADDOX : 1980 MR#: [id number] ADMIT: 10/03/2016 JOB ID: [id number] DATE OF SERVICE: 10/06/2016 REQUESTING PROVIDER: Jada Kim MD. REASON FOR CONSULTATION: Nausea, vomiting, diarrhea. HISTORY OF PRESENT ILLNESS: This is a 35-year-old female with chronic intractable pain, on regular opiate therapy, who has previously been admitted here at [facility] for similar reasons back in July 2015. I reviewed the note from that visit where she was seen by my colleague, Dr. Stephenson. At that time, a stool analysis had been accomplished and there were no signs of infection. The patient proceeded to upper endoscopy and colonoscopy, both of which were normal. The terminal ileum was additionally evaluated and visually normal. Pathology from that visit demonstrated no features of colitis, no evidence of ileitis, no H. pylori, or any significant gastric or duodenal pathology. The patient had really in essence been stable since then from a GI standpoint. She reports that she has a regular bowel movement in spite of using opiates daily. She gets occasionally nauseated and really the only time she has vomited is, when in her opinion, there is too rapid of an adjustment of one of her medications. She mentions that she has been attempting to slowly taper her clonazepam and recently did start to increase a little bit of the Dilaudid use. Occasionally when she has severe pain that is uncontrolled this in and of itself seems to induce nausea and even vomiting. This time around, the patient was admitted on October 03, and apparently was not able to keep her medications down at that time. She denied constipation or feeling like there is any real significant recalled change in her bowel habit, but with certainty did have loose frequent stools while she was having the emesis. She additionally had an epigastric to slightly right upper quadrant abdominal discomfort that did not radiate anywhere into her back. She could not determine whether this preceded or was caused by all of the nausea and emesis. Since being hospitalized with IV analgesia and continued benzodiazepine, she has not had any further emesis since Thursday night. She has been a little nauseated at times. She has also not had any further bowel movement since Thursday night. I reviewed her CAT scan which was done yesterday and revealed that there was some stool in the ascending colon, but certainly no evidence of any intestinal obstruction at this time. The cause for her symptoms were simply not found. Here in the emergency department and over the course of admission, her lipase has been normal. She has not had any fever or any infectious symptoms. At my request, she received the first of two Fleet enemas this afternoon and she really has only produced a small amount of liquid and flecks of solid stool. No substantial formed stool has been evacuated. The patient is very hungry and wishes to try some food. ALLERGIES: 1. ANTIHISTAMINES. 2. ACETAMINOPHEN. 3. DIPHENHYDRAMINE. 4. DROPERIDOL. 5. KETOROLAC. 6. METOCLOPRAMIDE. 7. PROCHLORPERAZINE. MEDICATIONS: The patient denies any nonsteroidal anti-inflammatory use. She takes p.r.n. promethazine and regularly scheduled tizanidine, clonidine, prazosin, clonazepam, Dilaudid, tramadol, brimonidine eye drops and prednisolone eye drops. The patient is listed as taking aspirin/acetaminophen/caffeine, but states she has not been on this medication for perhaps six months. PAST MEDICAL HISTORY: Fibromyalgia, chronic migraine, chronic pain, chronic opiates, corneal dystrophy, posttraumatic stress disorder, panic disorder, chronic anxiety. PAST SURGICAL HISTORY: Cholecystectomy, section x2, corneal transplant, lysis of adhesions and tubal ligation. SOCIAL HISTORY: The patient is and has children in their teens. She is an ex-smoker. There is no report of any alcohol. The patient does not use cannabis. FAMILY HISTORY: Noncontributory. REVIEW OF SYSTEMS: No infectious symptoms as above. Overall patient is feeling quite a bit better. She has intentionally attempted to lose some weight and been successful for about 10 pounds or so in the last 1-2 months. No urinary complaints. As mentioned above, no significant bowel movement since Thursday night. The remainder of her review is as per HPI. PHYSICAL EXAMINATION: Temperature 36.5, pulse 71, breathing 16, blood pressure 107/71, 98% on room air. The patient is ambulatory within the room in no distress. Alert, oriented, appropriate, cooperative, conversational. Skin: Warm and dry. No evidence of icterus or jaundice. Lungs: Clear bilaterally. Good respiratory effort. Heart: Regular. No significant peripheral pitting edema. Abdomen was soft, nondistended. Bowel sounds present. I did not appreciate any significant guarding, perhaps some very mild tenderness to palpation in the upper abdominal region. LABORATORIES: White count 5.1, normal differential, hemoglobin 11.8, hematocrit 35.5, MCV 91.7, platelets 258. Sodium 140, potassium 4.4, chloride 105, bicarb 29, BUN 3, creatinine 0.72, glucose 84, calcium 8.1. Liver tests normal. Protein 5.1, albumin 3.4, lipase normal as above. Urinalysis was not performed. IMAGING: CAT scan of abdomen and pelvis as described above from yesterday. ASSESSMENT AND RECOMMENDATIONS: A 35-year-old female on chronic opiates and benzodiazepines who has recently been admitted for subacute onset of nausea, vomiting, upper abdominal pain and diarrhea. The vomiting and diarrhea have subsided. The nausea is improved. The patient is hungry and wishes to attempt at eating. There are no concerning features in her laboratory workup and CAT scan imaging is reassuring. No evidence of any bowel obstruction at this time. We discussed the possibility of obstipation; and therefore, I would advise that she go through with the second enema that is planned for this afternoon. See how she responds to diet, advancing as tolerated for dinner. Certainly, if she has any deterioration with this I would make her n.p.o. and we could put her on for an anesthesia based EGD tomorrow morning. On the other hand, if she does well with her dinner, then I think weaning her off IV pain meds with a view to discharge home for primary care followup. The patient plans to have a discussion about tapering some of her opiate use in favor of cannabis, which I think would be a reasonable option. I would recommend that regardless of what she does on that score, that she perhaps pursue a little more aggressive bowel regimen. I see that the patient is on IV pantoprazole. This could probably be converted to oral therapy while in-house. She did not provide much in the way of a reflux type history and of course her EGD from approximately a year ago was rather unremarkable. It is doubtful that she would need this long-term at discharge. For the moment, will hold off on repeat endoscopic examination.
[2016-10-07] MEDS: 0.9% Sodium Chloride 1,000 ML IV SCH ×4 (01:11→21:52)
[2016-10-07] MEDS: HYDROmorphone 1 mg/mL Inj IVPUSH PRN ×7 (02:42→21:01)
--- NOTE | 2016-10-07 03:23 | NUR ---
Pain/anxiety/nausea Pt reporting abdominal pain continues at 7-8 and although pt would like to wean off Dilaudid IV she has needed it just about every 3 hrs to keep pain managed. Pt reports that nausea increases with pain, IV Phenergan given x1. Pt is on a general diet and has been encouraged to go slow with diet. Pt is also taking Ativan per eMAR for anxiety. Pt reporting no further stool since enema on day shift. Continue to monitor.
[2016-10-07 06:08] LABS: BASOPHILS % (AUTO) 0.4 % (0-3); EOSINOPHILS % (AUTO) 3.8 % (0-5); MONOCYTES % (AUTO) 7.2 % (4-12); Mean Corpuscular Hemoglobin 30.7 pg (27.0-35.0); Mean Corpuscular Volume 90.7 fL (81-100); NEUTROPHILS % (AUTO) 63.6 % (40-74); Platelet Count 264 bil/L (150-400)
[2016-10-07 06:21] VITALS: BP 101/68; PULSE 71; RESP 16; O2SAT 95
[2016-10-07] MEDS ORDERED: Methylnaltrexone 12 mg/0.6 mL Inj SUBQ ONE (07:40)
--- NOTE | 2016-10-07 07:44 | PCM.PNMED ---
Subjective Date of Service Oct 07, 2016 Subjective Patient continues with significant pain upper abdominal. She rates it as an 8 out of 10. She did have approximately 3 stools after getting enemas yesterday. He has some nausea but denies any vomiting. She denies any response to hyoscyamine. She is continuing to require IV Dilaudid in addition to by mouth Dilaudid. Exam Vital Signs Vital Sign - Last Date Time Temp Pulse Resp B/P Pulse Ox O2 Delivery O2 Flow Rate FiO2 10/07/16 06:21 37.1 71 16 101/68 95 Room Air Intake and Output 10/06/16 10/06/16 10/07/16 Cumulative From/Thru 14:59 22:59 06:59 10/03/16 12:14 - 10/07/16 06:21 Intake Total 1896 ml 1975 ml 31935 ml Output Total 900 ml 750 ml 6652 ml Balance 996 ml 1225 ml 9223 ml Intake Oral 900 ml 800 ml 5148 ml IV Total 996 ml 1175 ml 12212 ml Output Urine Total 900 ml 750 ml 6650 ml Emesis 2 ml # Voids 4 # Bowel Movements 0 0 Exam Constitutional: Middle-aged woman who is in pain distress Head: Normocephalic atraumatic Chest: Clear to auscultation Cor: Regular rate and rhythm S1-S2 Abdomen: Soft there is tenderness in the epigastrium no rebound no guarding bowel sounds are present Extremities no pedal edema Neuro alert and oriented 3, motor strength is intact bilaterally Lab and Diagnostics Result Diagram: 10/07/16 0535 10/07/16 0535 X-Rays, CTs and MRIs PROCEDURE: CT ABDOMEN AND PELVIS WITH CONTRAST ([id number]) INDICATIONS: abdominal pain TECHNIQUE: After the administration of oral and intravenous contrast, 5 mm thick sections acquired from the diaphragms to the symphysis. 5 mm thick coronal and sagittal reformats were performed. For radiation dose reduction, the following was used : automated exposure control, adjustment of mA and/or kV according to patient size. COMPARISON: [facility], CT, CT ABD PELVIS W CON, 06/06/2016, 18:11. FINDINGS: Image quality: Excellent. ABDOMEN: Lung bases: Lung bases are clear. Heart size is normal. Solid organs: Liver and spleen are normal in size and enhancement. There is a small area of fatty infiltration near the falciform ligament in the medial segment of the left lobe. Gallbladder has been removed.. Biliary system is non- dilated. Pancreas enhances normally. No adrenal nodules. Kidneys are normal in size and enhancement, without hydronephrosis. Peritoneum and bowel: Stomach, small bowel, and colon loops are normal in caliber and wall thickness. No free fluid or air. There is a normal appendix. Nodes and vessels: No retroperitoneal or mesenteric adenopathy. Aorta and inferior vena cava are normal in caliber. Miscellaneous: No ventral hernias. PELVIS: Genitourinary: Bladder wall thickness is normal. The prominent abnormality of uterus or ovaries is seen Miscellaneous: No inguinal hernias or adenopathy. Bones: No suspicious bony lesions. No vertebral body compression fractures. IMPRESSION: 1. Cause of abdominal pain in the right upper quadrant is not identified. There' s been previous cholecystectomy. No abnormality of the biliary tree or pancreas a suggestion of inflammation is seen. 2. Right kidney and appendix are normal. Bowel loops are normal and lung bases are clear. Dictated by: Kelechi Pritchard M.D. on 10/05/2016 at 11:02 Approved by: Kelechi Pritchard M.D. on 10/05/2016 at 11:08 Assessment & Plan # Recurrent acute nausea vomiting diarrhea, present on admission Patient is continuing to have some symptoms although the diarrhea has subsided. We will back her diet down to clear liquids Continue with medications as ordered on admission Persistent epigastric discomfort with nausea but currently without vomiting or diarrhea She did respond with fleets enemas with 3 stools liquid consistency. Appreciate GI consultation. We will proceed with placing on Colace, senna, will DC hyoscyamine. We will also try dose of Relistor subcutaneous. # Chronic problems as listed below:Chronic pain on chronic narcotics Migraines Episodic intractable nausea and vomiting Corneal dystrophy Fibromyalgia PTSD Panic disorder and chronic anxiety GI Prophylaxis: H2 ayaz VTE Prophylaxis: Sub-Q Enoxaparin VTE Mechanical Devices: Intermittant Pneumatic CD Resuscitation Status: CPR: Attempt Resuscitation Time spent 30 minutes Jada Kim MD Oct 07, 2016 07:44
[2016-10-07] MEDS: Promethazine Inj 25 MG in Dextrose 5%-Pha MIX 50 ML IV PRN ×2 (09:16→19:12)
[2016-10-07] MEDS: Brimonidine-Timolol 5 mL Ophthalmic Solution LEFT_EYE SCH ×2 (10:05→21:01)
[2016-10-07] MEDS: PrednisoLONE 1% 5 mL Ophthalmic Suspension LEFT_EYE SCH ×3 (10:05→21:01)
--- NOTE | 2016-10-07 13:33 | NUR ---
KIET signed. RADHA Isaac
[2016-10-07 14:09] VITALS: BP 95/62; PULSE 75; RESP 14; O2SAT 97
[2016-10-07] MEDS ORDERED: Lactulose 20 Gm/30 mL 30 mL Syrup PO PRN (15:15)
--- NOTE | 2016-10-07 18:48 | PCM.PNMED ---
Subjective Date of Service Oct 07, 2016 Subjective GI progress note: This is a 35-year-old female with past medical history significant for fibromyalgia, chronic opiate use, PTSD/anxiety with past admits for nausea/ vomiting/diarrhea who presented to our service with nausea, vomiting, and diarrhea. In July 2015 the patient had an upper endoscopy and colonoscopy both of which showed no concerning abnormalities. The patient was admitted on 10/03/2016 with loose frequent stools and episodes of emesis along with right upper quadrant abdominal discomfort that was nonradiating. CT scan of the abdomen showed no concerning abnormalities. Today, the patient continues to have nausea. Vomiting resolved around 3 days ago. She is tolerating a general diet. She states her abdominal pain is improved but nursing states she is requiring IV Dilaudid every 3 hours and oral Dilaudid every 6 hours. She is also constipated and enema yesterday resulted in what nursing described as a bowel movement of "small maida" but without red or black. She also received Relistor this morning and had a small bowel movement afterwards. She denies any shortness of breath, chest pain or pressure. Exam Vital Signs Vital Sign - Last Date Time Temp Pulse Resp B/P Pulse Ox O2 Delivery O2 Flow Rate FiO2 10/07/16 06:21 37.1 71 16 101/68 95 Room Air Intake and Output 10/06/16 10/06/16 10/07/16 Cumulative From/Thru 15:00 23:00 07:00 10/03/16 12:14 - 10/07/16 06:21 Intake Total 1896 ml 1975 ml 26427 ml Output Total 900 ml 750 ml 6652 ml Balance 996 ml 1225 ml 9223 ml Intake Oral 900 ml 800 ml 5148 ml IV Total 996 ml 1175 ml 86909 ml Output Urine Total 900 ml 750 ml 6650 ml Emesis 2 ml # Voids 4 # Bowel Movements 0 0 Exam General: No acute distress, well-developed, well-nourished. HEENT: Normocephalic, atraumatic. External ears without defect. Pupils equal, round, and reactive to light and accommodation. Anicteric sclerae, moist conjunctivae. Oropharynx free of erythema and cobble stoning with moist mucosa. Neck: Supple with full range of motion. Cardiovascular: Regular rate and rhythm with no murmurs, rubs, or gallops appreciated Pulmonary: Clear to auscultation bilaterally with no crackles, wheezes, or rhonchi. Normal respiratory effort with no use of accessory muscles. Abdomen: Bowel tones present. Soft, nondistended. Tenderness to palpation in midepigastric area and right upper quadrant without rebound or guarding. No hepatosplenomegaly or masses appreciated. Extremities: No clubbing, cyanosis, or edema. Skin: Normal temperature, turgor, and texture; no rash, ulcers, or subcutaneous nodules appreciated. Neurological: Cranial nerves grossly intact. Normal muscle strength, tone, and bulk. Lab and Diagnostics Result Diagram: 10/07/1653410/07/16534 X-Rays, CTs and MRIs PROCEDURE: CT ABDOMEN AND PELVIS WITH CONTRAST (PNL-7102) INDICATIONS: abdominal pain TECHNIQUE: After the administration of oral and intravenous contrast, 5 mm thick sections acquired from the diaphragms to the symphysis. 5 mm thick coronal and sagittal reformats were performed. For radiation dose reduction, the following was used : automated exposure control, adjustment of mA and/or kV according to patient size. COMPARISON: [facility], CT, CT ABD PELVIS W CON, 06/06/2016, 18:11. FINDINGS: Image quality: Excellent. ABDOMEN: Lung bases: Lung bases are clear. Heart size is normal. Solid organs: Liver and spleen are normal in size and enhancement. There is a small area of fatty infiltration near the falciform ligament in the medial segment of the left lobe. Gallbladder has been removed.. Biliary system is non- dilated. Pancreas enhances normally. No adrenal nodules. Kidneys are normal in size and enhancement, without hydronephrosis. Peritoneum and bowel: Stomach, small bowel, and colon loops are normal in caliber and wall thickness. No free fluid or air. There is a normal appendix. Nodes and vessels: No retroperitoneal or mesenteric adenopathy. Aorta and inferior vena cava are normal in caliber. Miscellaneous: No ventral hernias. PELVIS: Genitourinary: Bladder wall thickness is normal. The prominent abnormality of uterus or ovaries is seen Miscellaneous: No inguinal hernias or adenopathy. Bones: No suspicious bony lesions. No vertebral body compression fractures. IMPRESSION: 1. Cause of abdominal pain in the right upper quadrant is not identified. There' s been previous cholecystectomy. No abnormality of the biliary tree or pancreas a suggestion of inflammation is seen. 2. Right kidney and appendix are normal. Bowel loops are normal and lung bases are clear. Dictated by: Kelechi Pritchard M.D. on 10/05/2016 at 11:02 Approved by: Kelechi Pritchard M.D. on 10/05/2016 at 11:08 Assessment & Plan This is a 35-year-old female with history of chronic opiate use due to chronic pain and benzodiazepines admitted for nausea, vomiting, diarrhea, and right upper quadrant/midepigastric abdominal pain. Since admit patients diarrhea and vomiting have resolved but still reports nausea (which is chronic). EGD and colonoscopy in 2014 showed no concerning abnormalities. CAT scan of the abdomen showed no concerning abnormalities. Obstipation: -Possibly secondary to opiate use. Relistor ordered by primary team. -Recommend tapering pain medications beginning with IV pain meds. -Recommend converting IV PPI to oral for short term use. -If symptoms are worsening could consider endoscopic examination. GI Prophylaxis: H2 ayaz VTE Prophylaxis: Sub-Q Enoxaparin VTE Mechanical Devices: Intermittant Pneumatic CD Resuscitation Status: CPR: Attempt Resuscitation Attending Statement Patient seen and examined. Agree with assessment and plan as described by Dr Bruno. Overall, improved. Nausea perisists, but tolerated PO intake. No vomiting. Has been started on Relastor. Small bm shortly following first dose. Will continue to follow. Ranjit Bruno DO Oct 07, 2016 10:31 Augustin Santizo MD Oct 07, 2016 21:48
--- NOTE | 2016-10-07 19:10 | NUR ---
BM Relistor administered this am, Pt had a small soft BM Pain controlled with PO and IV Dilaudid. Phenergan administered once this shift for nausea
[2016-10-07] MEDS: Pantoprazole 40 mg ER24 Tablet PO SCH (19:12)
[2016-10-07 20:54] VITALS: BP 117/71; PULSE 73; RESP 20; O2SAT 99
[2016-10-08] MEDS: HYDROmorphone 1 mg/mL Inj IVPUSH PRN ×7 (00:07→23:58)
[2016-10-08] MEDS: Promethazine Inj 25 MG in Dextrose 5%-Pha MIX 50 ML IV PRN ×2 (01:57→09:12)
--- NOTE | 2016-10-08 04:15 | NUR ---
Pain Pt unable to wean off IV Dilaudid, continues to require q3 hrs to keep pain under control; tonight pain has been up to 9/10 and down to 7/10 with Dilaudid. Ativan given for anxiety x2, along with IV Phenergan for nausea x2. Pt reports no BM this shift.
[2016-10-08 04:57] VITALS: BP 105/67; PULSE 78; RESP 20; O2SAT 98
[2016-10-08 06:55] LABS: BASOPHILS % (AUTO) 0.8 % (0-3); EOSINOPHILS % (AUTO) 4.7 % (0-5); Mean Corpuscular Hemoglobin 30.7 pg (27.0-35.0); Mean Corpuscular Volume 90.9 fL (81-100); Platelet Count 284 bil/L (150-400)
--- NOTE | 2016-10-08 06:59 | PCM.PNMED ---
Subjective Date of Service Oct 08, 2016 Subjective This is a 35-year-old female with past medical history significant for fibromyalgia, chronic opiate use, PTSD/anxiety with past admits for nausea/ vomiting/diarrhea who presented to our service with nausea, vomiting, and diarrhea. In July 2015 the patient had an upper endoscopy and colonoscopy both of which showed no concerning abnormalities. The patient was admitted on 10/03/2016 with loose frequent stools and episodes of emesis along with right upper quadrant abdominal discomfort that was nonradiating. CT scan of the abdomen showed no concerning abnormalities. Today, the patient continues to have nausea but she states this is much improved. Vomiting resolved around 4 days ago. She is tolerating a general diet. She states she is still requiring IV Dilaudid but her need has been reduced. Her pain is mostly from fibromyalgia. Her abdominal pain has mostly resolved except for a mild midepigastric pain. She did have a soft, small bowel movement both today and yesterday after receiving Relistor yesterday morning. She denies any shortness of breath, chest pain or pressure. Exam Vital Signs Vital Sign - Last Date Time Temp Pulse Resp B/P Pulse Ox O2 Delivery O2 Flow Rate FiO2 10/08/16 04:57 36.6 78 20 105/67 98 Room Air Intake and Output 10/07/16 10/07/16 10/08/16 Cumulative From/Thru 15:00 23:00 07:00 10/03/16 12:14 - 10/08/16 06:16 Intake Total 2456 ml 1135 ml 55192 ml Output Total 950 ml 7602 ml Balance 1506 ml 1135 ml 63669 ml Intake Oral 1120 ml 6268 ml IV Total 1336 ml 1135 ml 24452 ml Output Urine Total 950 ml 7600 ml Emesis 2 ml # Voids 4 # Bowel Movements 0 0 Exam General: No acute distress, well-developed, well-nourished. HEENT: Normocephalic, atraumatic. External ears without defect. Pupils equal, round, and reactive to light and accommodation. Anicteric sclerae, moist conjunctivae. Oropharynx free of erythema and cobble stoning with moist mucosa. Neck: Supple with full range of motion. Cardiovascular: Regular rate and rhythm with no murmurs, rubs, or gallops appreciated Pulmonary: Clear to auscultation bilaterally with no crackles, wheezes, or rhonchi. Normal respiratory effort with no use of accessory muscles. Abdomen: Bowel tones present. Soft, nondistended. Mild tenderness to palpation in midepigastric area. No hepatosplenomegaly or masses appreciated. Extremities: No clubbing, cyanosis, or edema. Skin: Normal temperature, turgor, and texture; no rash, ulcers, or subcutaneous nodules appreciated. Neurological: Cranial nerves grossly intact. Normal muscle strength, tone, and bulk. Lab and Diagnostics Result Diagram: 10/07/1653410/07/16534 X-Rays, CTs and MRIs PROCEDURE: CT ABDOMEN AND PELVIS WITH CONTRAST (PNL-7102) INDICATIONS: abdominal pain TECHNIQUE: After the administration of oral and intravenous contrast, 5 mm thick sections acquired from the diaphragms to the symphysis. 5 mm thick coronal and sagittal reformats were performed. For radiation dose reduction, the following was used : automated exposure control, adjustment of mA and/or kV according to patient size. COMPARISON: [facility], CT, CT ABD PELVIS W CON, 06/06/2016, 18:11. FINDINGS: Image quality: Excellent. ABDOMEN: Lung bases: Lung bases are clear. Heart size is normal. Solid organs: Liver and spleen are normal in size and enhancement. There is a small area of fatty infiltration near the falciform ligament in the medial segment of the left lobe. Gallbladder has been removed.. Biliary system is non- dilated. Pancreas enhances normally. No adrenal nodules. Kidneys are normal in size and enhancement, without hydronephrosis. Peritoneum and bowel: Stomach, small bowel, and colon loops are normal in caliber and wall thickness. No free fluid or air. There is a normal appendix. Nodes and vessels: No retroperitoneal or mesenteric adenopathy. Aorta and inferior vena cava are normal in caliber. Miscellaneous: No ventral hernias. PELVIS: Genitourinary: Bladder wall thickness is normal. The prominent abnormality of uterus or ovaries is seen Miscellaneous: No inguinal hernias or adenopathy. Bones: No suspicious bony lesions. No vertebral body compression fractures. IMPRESSION: 1. Cause of abdominal pain in the right upper quadrant is not identified. There' s been previous cholecystectomy. No abnormality of the biliary tree or pancreas a suggestion of inflammation is seen. 2. Right kidney and appendix are normal. Bowel loops are normal and lung bases are clear. Dictated by: Kelechi Pritchard M.D. on 10/05/2016 at 11:02 Approved by: Kelechi Pritchard M.D. on 10/05/2016 at 11:08 Assessment & Plan This is a 35-year-old female with history of chronic opiate use due to chronic pain and benzodiazepines admitted for nausea, vomiting, diarrhea, and right upper quadrant/midepigastric abdominal pain. Since admit patients diarrhea and vomiting have resolved but still reports nausea (which is chronic). EGD and colonoscopy in 2014 showed no concerning abnormalities. CAT scan of the abdomen showed no concerning abnormalities. Patient is improving symptomatically today. Obstipation: -Possibly secondary to opiate use. -Recommend continuing to taper pain medications beginning with IV pain meds. Consider tapering opiates as outpatient. -Recommend converting IV PPI to oral PPI for short term use. -Patient will need a more aggressive bowel regimen as an outpatient. Suggest 2 tablespoons of ground flax seed in 8 oz of water twice daily. Patient can also try organic sour kraut on a daily basis. We will sign off for now. If any questions or concerns please contact the gastroenterology team. We would be happy to see patient in followup on a outpatient basis in clinic. GI Prophylaxis: H2 ayaz VTE Prophylaxis: Sub-Q Enoxaparin VTE Mechanical Devices: Intermittant Pneumatic CD Resuscitation Status: CPR: Attempt Resuscitation Attending Statement Patient seen and examined. Agree with the assessment and plan as described by Dr Leavitt. Overall, improved and tolerating diet. Continues with FM pain. Abd discomfort is improved. Small bm today. Will sign off for now. I have recommended an aggressive bowel regimen and recommended patient discuss medical Cannabis for her chronic intractable pain. This may lower her daily opiate need. Ranjit Bruno DO Oct 08, 2016 06:59 Augustin Santizo MD Oct 08, 2016 22:42
[2016-10-08] MEDS: Pantoprazole 40 mg ER24 Tablet PO SCH ×2 (08:21→15:54)
[2016-10-08] MEDS: Brimonidine-Timolol 5 mL Ophthalmic Solution LEFT_EYE SCH ×2 (08:27→20:45)
[2016-10-08] MEDS: PrednisoLONE 1% 5 mL Ophthalmic Suspension LEFT_EYE SCH ×3 (08:27→20:44)
[2016-10-08] MEDS: 0.9% Sodium Chloride 1,000 ML IV SCH ×2 (08:35→20:25)
[2016-10-08] MEDS: Polyethylene Glycol (PEG) 17 Gm Powder PO SCH ×2 (10:54→20:50)
--- NOTE | 2016-10-08 12:01 | PCM.PNMED ---
Subjective Date of Service Oct 08, 2016 Subjective Patient had soft bowel movement twice 12 hours Required Ativan, Phenergan and Dilaudid IV for pain overnight this AM, pt seemed mildly disturbed emotionally didn't eat breakfast because of nausea, no vomiting pt agreed to try aggressive bowel regimen, dilaudid po today, Exam Vital Signs Vital Sign - Last Date Time Temp Pulse Resp B/P Pulse Ox O2 Delivery O2 Flow Rate FiO2 10/08/16 04:57 36.6 78 20 105/67 98 Room Air Intake and Output 10/07/16 10/07/16 10/08/16 Cumulative From/Thru 15:00 23:00 07:00 10/03/16 12:14 - 10/08/16 06:16 Intake Total 2456 ml 1135 ml 88765 ml Output Total 950 ml 7602 ml Balance 1506 ml 1135 ml 99359 ml Intake Oral 1120 ml 6268 ml IV Total 1336 ml 1135 ml 17307 ml Output Urine Total 950 ml 7600 ml Emesis 2 ml # Voids 4 # Bowel Movements 0 0 Exam NAD, comfortably laying down on the bed no JVD, MMM, no LAD RRR, nl s1, s2 no mrg CTAB, no w,c S,ND,NT, hypoactive BS+ warm, no edema, pulses 2/2 IVs and Medications Medications Reviewed: Medications were reviewed in detail Lab and Diagnostics Result Diagram: 10/08/1661410/08/16614 X-Rays, CTs and MRIs PROCEDURE: CT ABDOMEN AND PELVIS WITH CONTRAST (PNL-7102) INDICATIONS: abdominal pain TECHNIQUE: After the administration of oral and intravenous contrast, 5 mm thick sections acquired from the diaphragms to the symphysis. 5 mm thick coronal and sagittal reformats were performed. For radiation dose reduction, the following was used : automated exposure control, adjustment of mA and/or kV according to patient size. COMPARISON: [facility], CT, CT ABD PELVIS W CON, 06/06/2016, 18:11. FINDINGS: Image quality: Excellent. ABDOMEN: Lung bases: Lung bases are clear. Heart size is normal. Solid organs: Liver and spleen are normal in size and enhancement. There is a small area of fatty infiltration near the falciform ligament in the medial segment of the left lobe. Gallbladder has been removed.. Biliary system is non- dilated. Pancreas enhances normally. No adrenal nodules. Kidneys are normal in size and enhancement, without hydronephrosis. Peritoneum and bowel: Stomach, small bowel, and colon loops are normal in caliber and wall thickness. No free fluid or air. There is a normal appendix. Nodes and vessels: No retroperitoneal or mesenteric adenopathy. Aorta and inferior vena cava are normal in caliber. Miscellaneous: No ventral hernias. PELVIS: Genitourinary: Bladder wall thickness is normal. The prominent abnormality of uterus or ovaries is seen Miscellaneous: No inguinal hernias or adenopathy. Bones: No suspicious bony lesions. No vertebral body compression fractures. IMPRESSION: 1. Cause of abdominal pain in the right upper quadrant is not identified. There' s been previous cholecystectomy. No abnormality of the biliary tree or pancreas a suggestion of inflammation is seen. 2. Right kidney and appendix are normal. Bowel loops are normal and lung bases are clear. Dictated by: Kelechi Pritchard M.D. on 10/05/2016 at 11:02 Approved by: Kelechi Pritchard M.D. on 10/05/2016 at 11:08 Assessment & Plan This is a 35-year-old female with history of chronic opiate use due to chronic pain and benzodiazepines admitted for nausea, vomiting, diarrhea, and right upper quadrant/midepigastric abdominal pain. EGD and colonoscopy in 2014 showed no concerning abnormalities. CAT scan of the abdomen showed no concerning abnormalities. acute, active #intractable n/v, diarrhea, present on admission, likely due to opioid overdose for Fibromyalgia. s/p Relistor 10/07, partially responded. abd exam remained benign. -appreciate GI input, signed off, recommended medical tx -started Miralax bid, senna bid, colace bid, metamucil bid -dilaudid chg to 2mg qid(home dose) -zofran prn for n/v -continue PPI bid -plan to try subside sx, if it's tolerable tomorrow, tolerate diet # Chronic problems as listed below:Chronic pain on chronic narcotics, pt needs good follow up with PCP, possibly pain clinic referral(pt seemed to agree) upon d/c Migraines Episodic intractable nausea and vomiting Corneal dystrophy Fibromyalgia PTSD Panic disorder and chronic anxiety dispo:anticipate d/c tomorrow home diet: advance as tolerate Full code GI Prophylaxis: H2 ayaz VTE Prophylaxis: Sub-Q Enoxaparin VTE Mechanical Devices: Intermittant Pneumatic CD Resuscitation Status: CPR: Attempt Resuscitation Time spent 35min Farrah Gunderson MD Oct 08, 2016 11:56
[2016-10-08 13:28] VITALS: BP 85/57; PULSE 82; RESP 16; O2SAT 95
[2016-10-08 13:51] VITALS: BP 101/66
--- NOTE | 2016-10-08 14:17 | NUR ---
NUTRITION FOLLOW-UP: Assess: 35 YO F admitted for intractable N/V, diarrhea. Pt nausea is still present, but vomiting and diarrhea have improved. Pt diet was advanced to general on 10/06 with pt eating 50-100% of meals yesterday. Bowel regimen started today. PMHX: Chronic pain, migraines, episodic N/V, corneal dystrophy, fibromyalgia, panic disorder, PTSD, anxiety. DIET: General. PO intake 25-100%. LABS: Reviewed. Alb 3.5. MEDICATIONS: Reviewed. Miralax, senna, colace, metamucil. GI: Soft BM x 2 per MD notes. WEIGHT: 70.5 kg, BMI 26.3 kg/m2 ESTIMATED NEEDS: Calories: 7208-2675 kcal/day (25-30 kcal/kg BW) Protein: 56-85 g/day (0.8-1.2 g/kg BW) NUTRITION DIAGNOSIS: 1) Inadequate oral intake related to decreased ability to consume sufficient energy as evidenced by clear liquid diet X 3 days, n/v--IMPROVING, DIET ADV TO GENERAL WITH PO INTAKE 25-100% OF MEALS. INTERVENTION: 1) Continue current diet at this time. MONITOR/EVALUATE: PO intake, diet tolerance, labs, GI/nutrition status. Follow per moderate nutrition risk guidelines.
--- NOTE | 2016-10-08 14:31 | NUR ---
Social Work- Readiness for Discharge Data: EMR reviewed. Pt is on day 5 of hospitalization for intractable vomiting per H&P. Pt is not medically stable for discharge, anticipate tomorrow. Per MD in rounds, pt's constipation and abdominal pain is resolving. Pt has been up independent in room. Pt to discharge home with to transport via POV. No anticipated discharge needs. SW continues to follow. Assessment: Pt who is independent at base. Plan: Pt to discharge home with to transport via POV. No anticipated discharge needs. SW continues to follow. Arminda Roa, SECOND BALLER
[2016-10-08 19:21] VITALS: BP 102/67; PULSE 70; O2SAT 95
--- NOTE | 2016-10-08 19:27 | NUR ---
Nausea/Pain management Pt. requesting all IV nausea and pain medication this morning. Educated pt. on trying to switch to PO meds to ready for discharge. Made a plan to switch to PO meds today. Pt. c/o more abdominal/generalized pain than she experiences at home, but was able to tolerate PO dilaudid, phenergan, and tramadol this afternoon. pt. says she is ready to discharge and wanted to leave AMA. Educated pt. on reason for keeping her here and AMA, and pt. agrees to stay until tomorrow. Pt. very emotional and anxious today. IV lorazepam given PRN which seemed to help.
[2016-10-08 20:10] VITALS: BP 112/67; PULSE 75; RESP 16; O2SAT 95
[2016-10-09] MEDS: HYDROmorphone 1 mg/mL Inj IVPUSH PRN ×2 (03:12→09:00)
--- NOTE | 2016-10-09 03:20 | NUR ---
Pain/BM Pt. had a moderate bowel movement. Pt. describes "three pieces that were bigger than balls. Not too soft or too hard". Pt. reports passing flatus regularly. Pt. reports severe abdominal pain throughout the night. Pt. reports the pain is cramp-like near her stomach. Pt. education given on the importance of trying to stick to a PO pain medication regimen for discharge. Reinforcement is needed. Will continue to monitor.
[2016-10-09 06:05] VITALS: BP 95/59; PULSE 65; RESP 16; O2SAT 99
[2016-10-09] MEDS: 0.9% Sodium Chloride 1,000 ML IV SCH (06:05)
[2016-10-09 06:31] LABS: BASOPHILS % (AUTO) 0.9 % (0-3); EOSINOPHILS % (AUTO) 4.9 % (0-5); MONOCYTES % (AUTO) 7.3 % (4-12); Mean Corpuscular Hemoglobin 30.3 pg (27.0-35.0); Mean Corpuscular Volume 90.5 fL (81-100); NEUTROPHILS % (AUTO) 47.5 % (40-74); Platelet Count 273 bil/L (150-400)
[2016-10-09] MEDS: Brimonidine-Timolol 5 mL Ophthalmic Solution LEFT_EYE SCH (08:30)
[2016-10-09] MEDS: PrednisoLONE 1% 5 mL Ophthalmic Suspension LEFT_EYE SCH (08:30)
[2016-10-09] MEDS: Pantoprazole 40 mg ER24 Tablet PO SCH (08:59)
--- NOTE | 2016-10-09 09:01 | NUR ---
[facility] Signed
[2016-10-09] MEDS: Polyethylene Glycol (PEG) 17 Gm Powder PO SCH (09:02)
[2016-10-09] MEDS ORDERED: Docusate Sodium PO (10:02)
[2016-10-09] MEDS ORDERED: PANT40TA3 PO (10:02)
[2016-10-09] MEDS ORDERED: PSYL3.4P5 PO (10:02)
--- NOTE | 2016-10-09 10:06 | PCM.DIMED ---
Discharge Instructions Date of Service Oct 09, 2016 Dates of Hospitalization Oct 03, 2016 at 17:51 Discharge Diagnosis Discharge Diagnosis intractable nausea, vomiting, abdominal pain due to opioid induced constipation Medication Instructions For constipation You can take Colace twice a day You can take to Metamucil 2-3 times per day You can take Miralax daily Please hold this medicine if it causes excessive loose stools. Diet Low fat, Low Sodium, Heart Healthy Activity No restrictions Call your provider Vomitting, Excessive diarrhea Patient Instructions You were hospitalized with multiple GI symptoms, treated supportively with pain medication, laxatives. Please note that your condition is associated with heavy opioid use, it needs to be adjusted. It was recommended to see pain specialist to address this issue , possible referral from primary doctor. Please continue all of laxatives as above, it's important to keep it while on opioid medicine. Follow-up plan Please follow with your primary doctor in 2 weeks Follow-up Provider: Ayse Joel PA-C Follow-up with PCP in: 2 weeks Farrah Gunderson MD Oct 09, 2016 10:06
--- NOTE | 2016-10-09 11:57 | NUR ---
DISCHARGE Patient complained of starting to have an anxiety attack earlier this morning, IV ativan given with good effect. IV catheter removed by SN with catheter intact. Reviewed discharge paperwork with patient, including new bowel regimen. Patient acknowledged medications. Got dressed independently. Left hospital with and all personal belongings.
--- NOTE | 2016-10-10 14:38 | PCM.DC.MED ---
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 5 mm thick coronal and sagittal reformats were performed. For radiation dose reduction, the following was used : automated exposure control, adjustment of mA and/or kV according to patient size. COMPARISON: [facility], CT, CT ABD PELVIS W CON, 06/06/2016, 18:11. FINDINGS: Image quality: Excellent. ABDOMEN: Lung bases: Lung bases are clear. Heart size is normal. Solid organs: Liver and spleen are normal in size and enhancement. There is a small area of fatty infiltration near the falciform ligament in the medial segment of the left lobe. Gallbladder has been removed.. Biliary system is non- dilated. Pancreas enhances normally. No adrenal nodules. Kidneys are normal in size and enhancement, without hydronephrosis. Peritoneum and bowel: Stomach, small bowel, and colon loops are normal in caliber and wall thickness. No free fluid or air. There is a normal appendix. Nodes and vessels: No retroperitoneal or mesenteric adenopathy. Aorta and inferior vena cava are normal in caliber. Miscellaneous: No ventral hernias. PELVIS: Genitourinary: Bladder wall thickness is normal. The prominent abnormality of uterus or ovaries is seen Miscellaneous: No inguinal hernias or adenopathy. Bones: No suspicious bony lesions. No vertebral body compression fractures. IMPRESSION: 1. Cause of abdominal pain in the right upper quadrant is not identified. There' s been previous cholecystectomy. No abnormality of the biliary tree or pancreas a suggestion of inflammation is seen. 2. Right kidney and appendix are normal. Bowel loops are normal and lung bases are clear. Dictated by: Kelechi Pritchard M.D. on 10/05/2016 at 11:02 Approved by: Kelechi Pritchard M.D. on 10/05/2016 at 11:08 Brief History HPI obtained by on 10/03 Patient has had intermittent problems with nausea vomiting and diarrhea past. Now the last 2 weeks she is having this intermittently and is wondering if it is related to her clonazepam taper. She saw her primary care physician 3 days ago heart rate but thought she was doing okay overall. Then 2 days ago her nausea vomiting and diarrhea returned and she has been unable to keep fluids down. She says the last time she urinated was 2 days ago. She received, according to her, 3 L of IVF in the emergency Department and is now making urine but not as much as she would expect, so she feels she is still quite dehydrated. She says she was hospitalized last May for a similar problem and the IV Dilaudid and IV Ativan and IV Phenergan quite effective. She feels this time is a little bit different than last time, she feels worse, diarrhea is worse. Her stools are liquid and brown but no blood has been noted. She has not had any fever, chills, sweats. Her chronic pain is worse especially since she cannot keep down her oral Dilaudid. She has chronic pain "all over" but does not feel that it is same as flulike symptoms. No else at home is ill and she has not been traveling. She says she has severe dystonic reactions to almost all nausea medication and Phenergan is the only one she can tolerate. Hospital Course This is a 35-year-old female with history of chronic opiate use due to chronic pain and benzodiazepines admitted for nausea, vomiting, diarrhea, and right upper quadrant/midepigastric abdominal pain. EGD and colonoscopy in 2015 showed no concerning abnormalities. CAT scan of the abdomen showed no concerning abnormalities. acute problems #intractable n/v, diarrhea, present on admission, it was felt to be due to opioid overdose for Fibromyalgia given no organic causes on imagines and relatively recent endoscopic eval in 2014. Otherwise, it's possibly due to pure somatization given extensive psychiatric d/o. GI was consulted, no further intervention recommended. pt received Relistor 10/07, partially responded, pt was started on aggressive bowel regimen with Miralax bid, senna bid, colace bid , metamucil bid, made further BM, remained abdomen benign, tolerate diet well, deemed safe for d/c #Chronic pain with Fibromyalgia, psychiatric illness on chronic narcotics, pt required increased dose of dilaudid for pain, eventually titrated to her regular home regimen. Pt needs good follow up with PCP, possibly pain clinic referral(pt seemed to agree) upon d/c Chronic problems Migraines Corneal dystrophy PTSD Panic disorder and chronic anxiety Exam Vital Signs (Last) Date Time Temp Pulse Resp B/P Pulse Ox O2 Delivery O2 Flow Rate FiO2 10/09/16 06:05 36.4 65 16 95/59 99 Room Air Exam NAD, comfortably laying down on the bed no JVD, MMM, no LAD RRR, nl s1, s2 no mrg CTAB, no w,c S,ND,NT, hypoactive BS+ warm, no edema, pulses 2/2 Test 10/03/16 12:50 10/03/16 14:40 10/05/16 08:10 10/09/16 06:00 Magnesium Level 1.9mg/dL (1.6-2.6) Hold Peraza Top Tube Received (Received) Hold Urine Received (Received) Lipase 19U/L (13-60) White Blood Count 5.5th/mm3 (3.8-10.1) Red Blood Count 4.09mil/mm3 (3.90-5.20) Hemoglobin 12.4g/dL (12.0-15.6) Hematocrit 37.0% (35.0-46.0) Mean Corpuscular Volume 90.5fL (81-100) Mean Corpuscular Hemoglobin 30.3pg (27.0-35.0) Mean Corpuscular Hemoglobin Concent 33.5% (32.0-37.0) Red Cell Distribution Width 11.8% (12.3-15.4) Platelet Count 273bil/L (150-400) Neutrophils (%) (Auto) 47.5% (40-74) Lymphocytes (%) (Auto) 39.2% (14-46) Monocytes (%) (Auto) 7.3% (4-12) Eosinophils (%) (Auto) 4.9% (0-5) Basophils (%) (Auto) 0.9% (0-3) Sodium Level 137mEq/L (134-144) Potassium Level 4.5mEq/L (3.5-5.2) Chloride Level 103mEq/L (97-108) Carbon Dioxide Level 26mmol/L (18-29) Blood Urea Nitrogen 6mg/dL (6-20) Creatinine 0.68mg/dL (0.57-1.00) Estimat Glomerular Filtration Rate 140mL/min (>59) Glucose Level 89mg/dL (60-99) Calcium Level 8.2mg/dL (8.5-10.1) Total Bilirubin 0.2mg/dL (0.0-1.2) Aspartate Amino Transf (AST/SGOT) 14U/L (0-50) Alanine Aminotransferase (ALT/SGPT) 16U/L (0-32) Alkaline Phosphatase 86U/L (25-150) Total Protein 5.3g/dL (6.4-8.4) Albumin 3.5g/dL (3.4-5.0) Discharge Medications Discharge Medications ([Docusate Sodium]) 250 MG CAPSULE 250 MG PO BID Prescribed by: FARRAH MEYER MD Brimonidine Tartrate/Timolol (Combigan Eye Drops) 5 Ml Drops 1 DROP LEFT_EYE BID (Reported) Clonazepam (Clonazepam) 0.5 Mg Tablet 0.5 MG PO QAM (Reported) Clonazepam ODT (Clonazepam ODT) 0.25 Mg Tablet 0.75 MG PO HS (Reported) Take one-0.25mg tab along with one-0.5mg tab for a total of 0.75mg@HS Hydromorphone (Hydromorphone) 2 Mg Tablet 2 MG PO Q6H (Reported) Stagger with tramadol by 3 hours. Begin at 0400. Pantoprazole DR (Pantoprazole DR) 40 Mg Tablet.dr 40 MG PO BIDAC Prescribed by: FARRAH MEYER MD Prazosin (Prazosin) 1 Mg Capsule 5 MG PO HS (Reported) Prednisolone Acetate (Prednisolone Acetate) 5 Ml Drops.susp 1 DROP LEFT_EYE TID (Reported) Psyllium Husk/Aspartame (Metamucil Fiber Singles Packet) 3.4 Gm Powd.pack 1 PACKET PO PCHS Prescribed by: FARRAH MEYER MD Tizanidine (Tizanidine) 4 Mg Tablet 8 MG PO HS (Reported) Tramadol (Tramadol) 50 Mg Tablet 50 MG PO Q6H (Reported) Stagger with Dilaudid by 3 hours, begin @ 0700 As needed Aspirin/Acetaminophen/Caffeine (Kgtxybl-Barnfjfnzygog-Wxok Tab) 250 Mg-250 Mg- 65 Mg Tablet 2 EACH PO Q6H PRN PRN Headache (Reported) Clonidine (Clonidine) 0.1 Mg Tablet 0.1 MG PO BID PRN PRN Withdrawal Symptoms ( Reported) Promethazine (Promethazine) 25 Mg Tablet 25 MG PO Q6H PRN PRN For Nausea ( Reported) Additional med instructions For constipation You can take Colace twice a day You can take to Metamucil 2-3 times per day You can take Miralax daily Please hold this medicine if it causes excessive loose stools. Followup Plan Disposition: home Follow-up plan Please follow with your primary doctor in 2 weeks Discharge Diet: Low fat, Low Sodium, Heart Healthy Discharge Activity: No restrictions Patient Instructions You were hospitalized with multiple GI symptoms, treated supportively with pain medication, laxatives. Please note that your condition is associated with heavy opioid use, it needs to be adjusted. It was recommended to see pain specialist to address this issue , possible referral from primary doctor. Please continue all of laxatives as above, it's important to keep it while on opioid medicine. Follow-up Provider: Ayse Joel PA-C Follow-up with PCP in: 2 weeks Time spent 65min Farrah Meyer MD Oct 09, 2016 15:23
== END 2016-10-09 11:27 | disposition home or self-care (01) | DRG 392 ==
LOC: SED 12:06 → OBSVTOIN 17:51 → OSC 17:51
PROVIDERS: ADMIT Internal Medicine; ATTEND Internal Medicine
DX: K59.03 Drug induced constipation (principal); R11.2 Nausea with vomiting, unspecified; Z87.891 Personal history of nicotine dependence; R19.7 Diarrhea, unspecified; M79.7 Fibromyalgia; G89.29 Other chronic pain; T40.2X5A Adverse effect of other opioids, initial encounter

== ENCOUNTER 2017-01-07 10:08 | Emergency (ER) | payer OTHER, MEDICARE ==
[~2017-01-07] VITALS: Ht 162.6 cm; Wt 70.0 kg
[~2017-01-07 10:08] MED LIST changes: +ASPI-1148 PO; +CLON0.1T PO; +Docusate Sodium PO; +KLO5T PO; +PANT40TA3 PO; +PSYL3.4P5 PO
[2017-01-07 10:53] VITALS: BP 145/98; PULSE 124; RESP 24; O2SAT 96
[2017-01-07] MEDS ORDERED: 0.9% Sodium Chloride 1,000 ML IV ONE ×2 (12:10→16:50)
[2017-01-07] MEDS ORDERED: Promethazine Inj 25 MG in 0.9% Sodium Chloride-Pha MIX 100 ML IV ONE ×2 (12:10→18:20)
--- NOTE | 2017-01-07 12:15 | ED.REPORT ---
HPI-Abd Pain F Under 39 Date of Service January 07, 2017 ED Provider: Myron Veliz PA-C Lenore is a 36-year-old female with a history of anxiety and fibromyalgia presented with chief complaint of vomiting. Reports a three-day history of nausea and vomiting associated extent that she is not able to keep down her medications. Reports clonazepam 1 mg daily and Dilaudid 2 mg 4 times a day. Reports vomiting every 15 minutes last night. Also reports a stabbing left- sided chest pain with radiation to her shoulder and tachycardia that began last night at approximately 0300 and persists until presentation. Also complains of diffuse abdominal pain, diarrhea, fever of 103F, chills, sweats, cough, shortness of breath, wheezing. Reports she has not urinated in 2 days. Reports a weight loss of 40 pounds over the last year which she attributes to episodes similar to this. Denies melena, hematochezia, hematuria, dysuria. Denies . Recently hospitalized in this institution for similar complaint. No clear etiology was determined and at discharge was advised to engage in pain management plan. Denies Nursing Notes Stated Complaint: VOMITING/DIARRHEA, CAN'T KEEP DOWN MEDS Chief Complaint: General Complaint Nursing Notes Reviewed: Yes Allergies: Coded Allergies: acetaminophen (Verified Allergy, Unknown, 10/03/16) droperidol (Verified Allergy, Unknown, 10/03/16) ketorolac (Verified Allergy, Unknown, 10/03/16) metoclopramide (Verified Allergy, Unknown, 10/03/16) prochlorperazine (Verified Allergy, Unknown, RECEIVED PROMEHTAZINE X1 , 10/03/16) diphenhydramine (Verified Adverse Reaction, Severe, exacerbates migraines , 10/03/16) Uncoded Allergies: ANTIHISTAMINE (Allergy, Unknown, 04/12/14) Scheduled ([Docusate Sodium]) 250 MG CAPSULE 250 MG PO BID Brimonidine Tartrate/Timolol (Combigan Eye Drops) 5 Ml Drops 1 DROP LEFT_EYE BID Clonazepam (Clonazepam) 0.5 Mg Tablet 0.5 MG PO QAM Clonazepam ODT (Clonazepam ODT) 0.25 Mg Tablet 0.75 MG PO HS Take one-0.25mg tab along with one-0.5mg tab for a total of 0.75mg@HS Hydromorphone (Hydromorphone) 2 Mg Tablet 2 MG PO Q6H Stagger with tramadol by 3 hours. Begin at 0400. Pantoprazole DR (Pantoprazole DR) 40 Mg Tablet.dr 40 MG PO BIDAC Prazosin (Prazosin) 1 Mg Capsule 5 MG PO HS Prednisolone Acetate (Prednisolone Acetate) 5 Ml Drops.susp 1 DROP LEFT_EYE TID Psyllium Husk/Aspartame (Metamucil Fiber Singles Packet) 3.4 Gm Powd.pack 1 PACKET PO PCHS Tizanidine (Tizanidine) 4 Mg Tablet 8 MG PO HS Tramadol (Tramadol) 50 Mg Tablet 50 MG PO Q6H Stagger with Dilaudid by 3 hours, begin @ 0700 Scheduled PRN Aspirin/Acetaminophen/Caffeine (Kzmhrgo-Dechfxqadlnyg-Wjga Tab) 250 Mg-250 Mg- 65 Mg Tablet 2 EACH PO Q6H PRN PRN Headache Clonidine (Clonidine) 0.1 Mg Tablet 0.1 MG PO BID PRN PRN Withdrawal Symptoms Promethazine (Promethazine) 25 Mg Tablet 25 MG PO Q6H PRN PRN For Nausea Promethazine HCl (Phenergan) 50 Mg Supp.rect 50 MG RC QID PRN PRN For Nausea General Time Seen by MD: 11:55 Chief Complaint Vomiting severe Past Medical History Past Medical History Notes: Prior notes: PCP: Dr. Ayse Joel, fibromyalgia and chronic pain followed by a pain specialist previously on methadone but was taken off. Medications: Clonazepam- was on 2 TID, tapered to .75 BID Baclofen three times a day Prazosin 4x 1mg at bedtime 50mg tramadol 4x a day 5mg melatonin at night for sleep when needed 25mg promethazine Past Medical History Chronic pain on chronic opiates Fibromyalgia Kidney stones-1 requiring a surgery Colitis Migraines. Corneal dystrophy. PTSD. Panic disorder. Past Surgical History Bilateral cornea transplant 2014 Negative upper endoscopy in July 2015 by GI -Kidney stone removal 2005 -Right Retinal surgery 2014 -Tubal ligation -Cholecystectomy -Exploratory surgery to remove scar tissue from -Multiple C-sections Family History Family history of colitis (cousin) Reports: Diabetes mellitus Smoking History Former Smoker Social History Alcohol Use: "Social" Drug Use: Denies drug use Other Social History: Frequent ED visitor, Lives with children Ambulatory Status Independent Review of Systems General: Admits fever, chills, malaise HEENT: Denies congestion, headache, sore throat. Respiratory: Admits cough, denies dyspnea, shortness of breath, wheezing Cardiovascular: Admits chest pain, tachycardia Gastrointestinal: Admits vomiting, diarrhea, abdominal pain. Genitourinary: Denies frequency, urgency, dysuria, hematuria. Otherwise as noted in HPI. Physical Exam Initial Vital Signs Vital Signs (First) Date Time Temp Pulse Resp B/P Pulse Ox O2 Delivery O2 Flow Rate FiO2 01/07/17 10:53 36.9 124 24 145/98 96 Room Air Initial VS: Vital signs abnormal (tachycardia, tachypnea, elevated blood pressure) Interpretation & Diagnostics Lab Results Interpretation Result Diagram: 01/07/17 1245 01/07/17 1245 Test 01/07/17 12:45 01/07/17 16:13 White Blood Count 9.9th/mm3 (3.8-10.1) Red Blood Count 4.54mil/mm3 (3.90-5.20) Hemoglobin 14.2g/dL (12.0-15.6) Hematocrit 40.8% (35.0-46.0) Mean Corpuscular Volume 89.9fL (81-100) Mean Corpuscular Hemoglobin 31.3pg (27.0-35.0) Mean Corpuscular Hemoglobin Concent 34.8% (32.0-37.0) Red Cell Distribution Width 12.5% (12.3-15.4) Platelet Count 354bil/L (150-400) Neutrophils (%) (Auto) 86.5% (40-74) Lymphocytes (%) (Auto) 8.9% (14-46) Monocytes (%) (Auto) 4.1% (4-12) Eosinophils (%) (Auto) 0% (0-5) Basophils (%) (Auto) 0.3% (0-3) Sodium Level 142mEq/L (134-144) Potassium Level 3.4mEq/L (3.5-5.2) Chloride Level 103mEq/L (97-108) Carbon Dioxide Level 24mmol/L (18-29) Blood Urea Nitrogen 12mg/dL (6-20) Creatinine 0.80mg/dL (0.57-1.00) Estimat Glomerular Filtration Rate 116mL/min (>59) Glucose Level 95mg/dL (60-99) Calcium Level 9.3mg/dL (8.5-10.1) Total Bilirubin 0.6mg/dL (0.0-1.2) Aspartate Amino Transf (AST/SGOT) 13U/L (0-50) Alanine Aminotransferase (ALT/SGPT) 10U/L (0-32) Alkaline Phosphatase 89U/L (25-150) Troponin T < 0.010ug/L (0.0-0.011) Total Protein 7.3g/dL (6.4-8.4) Albumin 4.4g/dL (3.4-5.0) Lipase 46U/L (13-60) Human Chorionic Gonadotropin, Qual Negative (Negative) Urine Color Yellow (YELLOW) Urine Appearance Clear (CLEAR,HAZY) Urine pH 6.0 (5.0-8.0) Urine Specific [place] <1.005 (1.003-1.035) Urine Protein Negativemg/dL (NEG,TRACE) Urine Glucose (UA) Negativemg/dL (NEGATIVE) Urine Ketones Negativemg/dL (NEGATIVE) Urine Occult Blood Negative (NEGATIVE) Urine Nitrite Negative (NEGATIVE) Urine Bilirubin Negative (NEGATIVE) Urine Urobilinogen Normalmg/dL (NORMAL) Urine Leukocyte Esterase Negative (NEGATIVE) Urine RBC 0-2/hpf (0-2) Urine WBC 0-5/hpf (0-5) Urine Epithelial Cells Few/hpf (NONE-MOD) Urine Crystals None seen (NONE SEEN) Urine Bacteria Few/hpf (NONE-FEW) Urine Hyaline Casts None/lpf (NONE) Urine Granular Casts None seen (NONE SEEN) Urine Waxy Casts None seen (NONE SEEN) Urine Red Blood Cell Casts None seen (NONE SEEN) Urine White Blood Cell Casts None seen (NONE SEEN) Urine Mucus None seen (None Seen) Urine Trichomonas None seen (NONE SEEN) Urine Yeast None (NONE SEEN) Urinalysis Comment None Urine Culture Reflexed Not indicated ECG Interpretation ECG Interpretation: Sinus arrhythmia with a rate of approximately 81, negative ischemic changes. Time: 12:24 Interpreted by: ED physician (Dr. Lewis) X-Ray Chest Interpretation Chest Xray Interpretation: PROCEDURE: X-RAY CHEST ONE VIEW, PORTABLE ([id number]) INDICATIONS: chest pain IMPRESSION: 1. No acute cardiopulmonary disease. CT Abd / Pelvis Interpretation PROCEDURE: CT ABDOMEN AND PELVIS WITH CONTRAST ([id number]) INDICATIONS: abdominal pain IMPRESSION: No source of abdominal pain is found. A normal or abnormal appendix could not be located. No free fluid is seen throughout the peritoneal space. Prior cholecystectomy. Interpretation / Wet Read by: Interpret - Radiologist Re-Eval/Medical Decision Med Decision/Clinical Course 36-year-old female history of opiate and benzodiazepine habituation as well as fibromyalgia and anxiety presents with chief complaint of nausea, vomiting, diarrhea for the last 3 days. Reports she cannot take her medications is unable to keep anything down and has not urinated in 2 days. Complains of generalized abdominal pain. Also complains of stabbing left-sided chest pain with radiation to her arm which began at rest last night and continues to presentation. Reports using 1 mg clonazepam and 8 mg Dilaudid daily. Hospitalized in this facility for 7 days previously for similar complaint, discharged with a diagnosis of opiate related constipation. Physical examination reveals a diffusely tender abdomen, normal vitals. EKG is normal, troponin normal chest x-ray normal. Repeat troponin is not necessary due to the duration of symptoms. CBC, CMP, urinalysis are unremarkable and specifically argue against dehydration. CT abdomen does not visualize the appendix, but there are negative for inflammatory changes. Gallbladder surgically absent. No indication constipation. No source of pain is identified. Patient responds poorly to Phenergan, 4 mg Dilaudid, 2 mg Ativan, 3 L normal saline, stating she still feels nauseated. However on reexamination her abdomen is nontender. She reports vomiting 3 times in the department bathroom. She is quite tearful and distraught. I discussed this case with Dr. Lewis. We can find no objective justification for hospitalization or evidence of disease process. I am reassured against PA, pneumonia, cholecystitis, pancreatitis, diverticulitis, perforation, colitis, infection. We believe she is stable and safe discharged to home. Patient becomes quite tearful when we discussed this. She believes that her Phenergan will not be effective and she will not be able take her medications at home. Attempt to mitigate this by offering a Phenergan suppository. Advised primary care follow-up, offered reevaluation in the emergency department in 12 or 24 hours if symptoms continue. Advised emergent return precautions. Patient verbalized understanding of and consent to the plan. At discharge patient requests additional IV Phenergan which is provided. Also requests additional IV Ativan and fentanyl. This is declined. Patient is discharged home. Discharge & Departure Primary Impression: Abdominal pain Abdominal location: generalized Qualified Code: R10.84 - Generalized abdominal pain Additional Impression: Nausea, vomiting, and diarrhea Disposition: Home Discharge Condition All VS Reviewed: Yes Condition: Stable Patient Instructions: Acute Nausea and Vomiting (ED) Additional Instructions: Evaluation in the emergency department for nausea, vomiting and diarrhea includes history, physical exam, blood work, urinalysis and CT scan, all of which are reassuring that this is not caused by an immediately dangerous condition. I believe you are stable and safe to be discharged to home. I will give you a prescription for a maximum dose of a Phenergan suppository to help with the nausea. This should be helpful despite vomiting. Follow-up with your primary care provider as soon as you can. Your welcome to return to the emergency department in 12-24 hours for reassessment of your symptoms if they are not improving. Return sooner for new or worsening symptoms including increasing pain, bloody vomiting, fever. Referrals: Ayse Joel PA-C (PCP) EDSupervising Provider for APC: David Ni DO copies to: Ayse Joel PA-C, Seth PA-C January 07, 2017 12:15
[2017-01-07] MEDS ORDERED: Promethazine Inj 25 MG in 0.9% Sodium Chloride 50 ML IV ONE (12:20)
[2017-01-07] MEDS: HYDROmorphone 1 mg/mL Inj IVPUSH PRN ×4 (12:44→18:24)
--- NOTE | 2017-01-07 13:12 | DRSVH ---
PROCEDURE: X-RAY CHEST ONE VIEW, PORTABLE ([id number]) INDICATIONS: chest pain TECHNIQUE: One view of the chest was acquired. COMPARISON: [facility], CR, XR CHEST 1VW (PORTABLE), 09/18/2015, 22:08. FINDINGS: Surgical changes and devices: None. Lungs and pleura: No pleural effusions or pneumothorax. Lungs are clear. Mediastinum: Mediastinal contours appear normal. Heart size is normal. Bones and chest wall: No suspicious bony lesions. Overlying soft tissues appear unremarkable. IMPRESSION: 1. No acute cardiopulmonary disease. Dictated by: Radu Maldonado M.D. on 01/07/2017 at 13:10 Approved by: Radu Maldonado M.D. on 01/07/2017 at 13:10
[2017-01-07 14:16] VITALS: BP 118/68; PULSE 88; RESP 16; O2SAT 100
[2017-01-07 14:19] LABS: BASOPHILS % (AUTO) 0.3 % (0-3); EOSINOPHILS % (AUTO) 0 % (0-5); MONOCYTES % (AUTO) 4.1 % (4-12); Mean Corpuscular Hemoglobin 31.3 pg (27.0-35.0); Mean Corpuscular Volume 89.9 fL (81-100); NEUTROPHILS % (AUTO) 86.5 % (40-74); Platelet Count 354 bil/L (150-400)
[2017-01-07] MEDS ORDERED: HYDROmorphone 1 mg/mL Inj IVPUSH PRN (14:30)
[2017-01-07 14:48] LABS: TROPONIN T < 0.010 ug/L (0.0-0.011)
[2017-01-07 14:55] LABS: Lipase 46 U/L (13-60)
[2017-01-07 16:36] LABS: APPEARANCE,URINE CLEAR (CLEAR,HAZY); COLOR,URINE YELLOW (YELLOW); OCCULT BLOOD,URINE NEGATIVE (NEGATIVE); UROBILINOGEN,URINE NORMAL (NORMAL)
--- NOTE | 2017-01-07 16:36 | DRSVH ---
PROCEDURE: CT ABDOMEN AND PELVIS WITH CONTRAST ([id number]) INDICATIONS: abdominal pain TECHNIQUE: After the administration of intravenous contrast, 5 mm thick sections acquired from the diaphragm to the symphysis. 5 mm coronal and sagittal reformats were acquired. For radiation dose reduction, the following was used: automated exposure control, adjustment of mA and/or kV according to patient bev zuleta. COMPARISON: [facility], CT, CT ABD PELVIS W CON, 10/05/2016, 10:13. FINDINGS: Image quality: Excellent. ABDOMEN: Lung bases: Lung bases are clear. Heart size is normal. Solid organs: Liver and spleen are normal in size and enhancement. Gallbladder has been previously resected. Biliary system is non dilated. Pancreas enhances normally. No adrenal nodules. Kidneys demonstrate normal size and enhancement, without hydronephrosis. Peritoneum and bowel: Bowel loops demonstrate normal wall thickness and caliber. No free fluid or a ir. Nodes and vessels: No retroperitoneal or mesenteric adenopathy by size criteria. Aorta and inferior vena cava are normal in size. Miscellaneous: No ventral hernias. PELVIS: Genitourinary: Bladder wall thickness is normal. Miscellaneous: No inguinal hernias or adenopathy. Bones: No suspicious bony lesions. No vertebral body compression fractures. IMPRESSION: No source of abdominal pain is found. A normal or abnormal appendix could not be located . No free fluid is seen throughout the peritoneal space. Prior cholecystectomy. Dictated by: Tom Walter M.D. on 01/07/2017 at 16:33 Approved by: Tom Walter M.D. on 01/07/2017 at 16:35
[2017-01-07] MEDS ORDERED: PROM50SU11 RC (18:12)
[2017-01-07 19:05] VITALS: BP 127/61; PULSE 78; RESP 17; O2SAT 100
== END 2017-01-07 19:06 | disposition home or self-care (01) ==
LOC: SED 10:08
DX: R10.84 Generalized abdominal pain (principal); R11.2 Nausea with vomiting, unspecified; R19.7 Diarrhea, unspecified; F43.10 Post-traumatic stress disorder, unspecified; M79.7 Fibromyalgia; Z90.49 Acquired absence of other specified parts of digestive tract; Z87.891 Personal history of nicotine dependence; Z79.891 Long term (current) use of opiate analgesic; Z87.442 Personal history of urinary calculi; Z79.52 Long term (current) use of systemic steroids; Z79.82 Long term (current) use of aspirin; Z88.8 Allergy status to other drugs, medicaments and biological substances; Z88.6 Allergy status to analgesic agent
CPT/HCPCS: 36415; 71010; 74177; 80053; 81000; 83690; 84484; 84703; 85025; 93005; 96361; 96374; 96375; 96376; 99285; J1170; J2060; J2550; J7030; Q9967

== ENCOUNTER 2017-01-08 14:08 | Inpatient (IN) | payer OTHER, MEDICARE ==
[~2017-01-08] VITALS: Ht 162.6 cm; Wt 74.5 kg
[~2017-01-08 14:08] MED LIST changes: +PROM50SU11 RC
[2017-01-08 14:09] VITALS: BP 147/84; PULSE 124; RESP 16; O2SAT 98
[2017-01-08 14:59] LABS: BASOPHILS % (AUTO) 0.5 % (0-3); Mean Corpuscular Hemoglobin 31.3 pg (27.0-35.0); NEUTROPHILS % (AUTO) 76.1 % (40-74); Platelet Count 327 bil/L (150-400)
[2017-01-08 15:08] VITALS: BP 126/68; PULSE 102; RESP 20; O2SAT 100
--- NOTE | 2017-01-08 15:10 | ED.REPORT ---
HPI-Abd Pain F Under 40 Date of Service Jan 08, 2017 ED Provider: Pedrito Arreola MD Pt is a 36 year old female with a hx of PTSD and fibromyalgia presenting to the ED complaining of nausea, vomiting and diarrhea onset 4 days ago. Associated symptoms include fever, medication withdrawal symptoms, chills, abdominal pain. Pt was seen yesterday for the same symptoms. She reports that she has been unable to keep any of her medications or water down due to the vomiting. Pt was hospitalized in September for 1 week with similar symptoms, and her symptoms were attributed to her chronic pain. She had a negative abdominal CT scan yesterday in the ED. Pt takes Clonazepam 1mg drip (.5mg BID), Dilaudid 8mg (2mg 4x/day), and Tramadol 200 mg (50mg 4x/day). Nursing Notes Stated Complaint: NAUSEA, VOMITTING, DIARRHEA Chief Complaint: Female Abdominal Pain Nursing Notes Reviewed: Yes Allergies: Coded Allergies: acetaminophen (Verified Allergy, Unknown, 10/03/16) droperidol (Verified Allergy, Unknown, 10/03/16) ketorolac (Verified Allergy, Unknown, 10/03/16) metoclopramide (Verified Allergy, Unknown, 10/03/16) prochlorperazine (Verified Allergy, Unknown, RECEIVED PROMEHTAZINE X1 , 10/03/16) diphenhydramine (Verified Adverse Reaction, Severe, exacerbates migraines , 10/03/16) Uncoded Allergies: ANTIHISTAMINE (Allergy, Unknown, 04/12/14) Scheduled ([Docusate Sodium]) 250 MG CAPSULE 250 MG PO BID Brimonidine Tartrate/Timolol (Combigan Eye Drops) 5 Ml Drops 1 DROP LEFT_EYE BID Clonazepam (Clonazepam) 0.5 Mg Tablet 0.5 MG PO QAM Clonazepam ODT (Clonazepam ODT) 0.25 Mg Tablet 0.75 MG PO HS Take one-0.25mg tab along with one-0.5mg tab for a total of 0.75mg@HS Hydromorphone (Hydromorphone) 2 Mg Tablet 2 MG PO Q6H Stagger with tramadol by 3 hours. Begin at 0400. Pantoprazole DR (Pantoprazole DR) 40 Mg Tablet.dr 40 MG PO BIDAC Prazosin (Prazosin) 1 Mg Capsule 5 MG PO HS Prednisolone Acetate (Prednisolone Acetate) 5 Ml Drops.susp 1 DROP LEFT_EYE TID Psyllium Husk/Aspartame (Metamucil Fiber Singles Packet) 3.4 Gm Powd.pack 1 PACKET PO PCHS Tizanidine (Tizanidine) 4 Mg Tablet 8 MG PO HS Tramadol (Tramadol) 50 Mg Tablet 50 MG PO Q6H Stagger with Dilaudid by 3 hours, begin @ 0700 Scheduled PRN Aspirin/Acetaminophen/Caffeine (Mffhumm-Wvzkddhaerkyh-Eiye Tab) 250 Mg-250 Mg- 65 Mg Tablet 2 EACH PO Q6H PRN PRN Headache Clonidine (Clonidine) 0.1 Mg Tablet 0.1 MG PO BID PRN PRN Withdrawal Symptoms Promethazine (Promethazine) 25 Mg Tablet 25 MG PO Q6H PRN PRN For Nausea Promethazine HCl (Phenergan) 50 Mg Supp.rect 50 MG RC QID PRN PRN For Nausea General Time Seen by MD: 15:09 Chief Complaint Vomiting moderate Hx Obtained From: Patient Arrived By: Walk-in Sudden in Onset?: No Onset Occurred: 4 days ago Symptom Duration: Since onset Progression since Onset: Constant Location: : Diffuse Quality: Painful Severity: Current: Mild Severity: Maximum: Mild Recent Healthcare: No recent hospitalization, Recent doctor visit Similar Sx Previous: Yes Past Medical History Past Medical History Notes: Prior notes: PCP: Dr. Ayse Joel, fibromyalgia and chronic pain followed by a pain specialist previously on methadone but was taken off. Medications: Clonazepam- was on 2 TID, tapered to .75 BID Baclofen three times a day Prazosin 4x 1mg at bedtime 50mg tramadol 4x a day 5mg melatonin at night for sleep when needed 25mg promethazine Past Medical History Chronic pain on chronic opiates Fibromyalgia Kidney stones-1 requiring a surgery Colitis Migraines. Corneal dystrophy. PTSD. Panic disorder. Past Surgical History Bilateral cornea transplant 2014 Negative upper endoscopy in July 2015 by GI -Kidney stone removal 2005 (urethral) -Right Retinal surgery 2014 -Tubal ligation -Exploratory surgery to remove scar tissue from Reports: (x2), Cholecystectomy Family History Family history of colitis (cousin) Reports: Diabetes mellitus Smoking History Former Smoker Social History Alcohol Use: Denies alcohol use Drug Use: Denies drug use Other Social History: Frequent ED visitor, Lives with children Ambulatory Status Independent Review of Systems Constitutional: Reports: Chills, Fever GI: Reports: Abdominal pain, Diarrhea, Nausea, Vomiting Complete sys rev & neg: except as marked. Physical Exam Initial Vital Signs Vital Signs (First) Date Time Temp Pulse Resp B/P Pulse Ox O2 Delivery O2 Flow Rate FiO2 01/08/17 14:09 37.4 124 16 147/84 98 Room Air Initial VS: Reviewed Head / Eyes: Atraumatic, Normocephalic, PERRL ENT: Mucous membranes moist, Conjunctiva normal, No scleral icterus Extremities: Vascular intact, Neuro intact, No swelling, No tenderness Skin: Warm, Dry, No cyanosis Neurologic: Alert, Oriented, Nonfocal Psychiatric: Mood/affect normal, Behavior normal, Normal thought content General/Constitutional: Awake, Alert, No acute distress, Well appearing Respiratory / Chest: Breath sounds NL, Breath sounds = bilat, No respiratory distress, No rales, No rhonchi, No wheezing Cardiovascular: Regular rhythm, Heart sounds NL Heart Rate / Rhythm: Positive: Tachycardia Abdomen: Atraumatic, Soft Tenderness/Guarding/Rebound: Positive: Tender diffuse Interpretation & Diagnostics Lab Results Interpretation Result Diagram: 01/08/17 1451 01/08/17 1451 Test 01/08/17 14:51 White Blood Count 7.5th/mm3 (3.8-10.1) Red Blood Count 4.22mil/mm3 (3.90-5.20) Hemoglobin 13.2g/dL (12.0-15.6) Hematocrit 38.0% (35.0-46.0) Mean Corpuscular Volume 90.0fL (81-100) Mean Corpuscular Hemoglobin 31.3pg (27.0-35.0) Mean Corpuscular Hemoglobin Concent 34.7% (32.0-37.0) Red Cell Distribution Width 12.5% (12.3-15.4) Platelet Count 327bil/L (150-400) Neutrophils (%) (Auto) 76.1% (40-74) Lymphocytes (%) (Auto) 14.1% (14-46) Monocytes (%) (Auto) 7.0% (4-12) Eosinophils (%) (Auto) 2.0% (0-5) Basophils (%) (Auto) 0.5% (0-3) Sodium Level 144mEq/L (134-144) Potassium Level 3.6mEq/L (3.5-5.2) Chloride Level 106mEq/L (97-108) Carbon Dioxide Level 26mmol/L (18-29) Blood Urea Nitrogen 6mg/dL (6-20) Creatinine 0.73mg/dL (0.57-1.00) Estimat Glomerular Filtration Rate 128mL/min (>59) Glucose Level 81mg/dL (60-99) Calcium Level 9.1mg/dL (8.5-10.1) Magnesium Level 1.8mg/dL (1.6-2.6) Total Bilirubin 0.3mg/dL (0.0-1.2) Aspartate Amino Transf (AST/SGOT) 10U/L (0-50) Alanine Aminotransferase (ALT/SGPT) 8U/L (0-32) Alkaline Phosphatase 97U/L (25-150) Total Protein 6.3g/dL (6.4-8.4) Albumin 4.0g/dL (3.4-5.0) Lipase 53U/L (13-60) Hold Peraza Top Tube Received (Received) Re-Eval/Medical Decision Med Decision/Clinical Course We initially gave her IV doses of medications and about 2 hours later we have tried to have oral administration of her Dilaudid and tramadol which she vomited up about 10 minutes later. Again IV doses of Dilaudid and lorazepam were administered. Re-Evaluation/Progress : Time of Eval: 19:12 Patient Status: Condition improved Re-Evaluation/Progress Note: Pt unable to keep her medication down. Discussed plan for admission. Pt understands and agrees with plan. Consultation : Referral / Consult Name: Otis Meade MD Consulted With: Hospitalist Call Returned at: 19:44 Electrical Assembly Technician: Will see patient, Agrees with plan, Accepts admit Counseled Regarding: Diagnosis, Lab results, Need for follow-up, When/why to return to ED Discharge & Departure Primary Impression: Abdominal pain Additional Impression: Intractable nausea and vomiting Disposition: ADMITTED TO HOSPITAL Discharge Condition All VS Reviewed: Yes Condition: Improved Referrals: Ayse Joel PA-C (PCP) Scribe Attestation Portions of this note were transcribed by Silvia Romano. IDr. Arreola personally performed the history, physical exam and medical decision-making; I reviewed and confirmed the accuracy of the information in the transcribed note. Signed by: Sheila Johnson, 01/08/2017 at 1945. copies to: Ayse Joel PA-C, Kirk H MD Jan 08, 2017 15:10 SILVIA ROMANO Jan 08, 2017 15:31
[2017-01-08 15:33] LABS: Magnesium 1.8 mg/dL (1.6-2.6)
[2017-01-08] MEDS ORDERED: Promethazine Inj 50 MG in 0.9% Sodium Chloride-Pha MIX 100 ML IV ONE (15:40)
[2017-01-08] MEDS ORDERED: 0.9% Sodium Chloride 1,000 ML IV SCH (15:40)
[2017-01-08] MEDS ORDERED: HYDROmorphone 1 mg/mL Inj IVPUSH ONE ×3 (15:40→23:45)
[2017-01-08] MEDS ORDERED: Dexamethasone Inj 10 MG in 0.9% Sodium Chloride-Pha MIX 50 ML IV ONE (15:40)
[2017-01-08 16:07] VITALS: BP 118/71; PULSE 104; RESP 20; O2SAT 100
[2017-01-08 19:27] VITALS: BP 124/73; PULSE 90; RESP 22; O2SAT 97
[2017-01-08] MEDS ORDERED: Polyethylene Glycol (PEG) 17 Gm Powder PO PRN (19:50)
[2017-01-08] MEDS ORDERED: Alum-Mag Hydrox-Simeth 30 mL Suspension PO PRN (19:50)
--- NOTE | 2017-01-08 20:32 | NUR ---
Report received from Leigh Ann in ED.
--- NOTE | 2017-01-08 20:39 | PCM.HPMED ---
Subjective Date of Service Jan 08, 2017 Primary Provider: Admitting Physician: Primary Care Physician: Ayse Joel PA-C Attending Physician: Admit Status: From the Emergency Department, 23-Hour Observation, Non-Telemetry Chief Complaint: Nausea and vomiting History of Present Illness: Lenore Dyer is a 36 year old female with PTSD, Chronic pain syndrome with narcotic dependence and fibromyalgia presenting to [facility] emergency department complaining of nausea and vomiting onset 4 days ago. She denies any hematemesis or constipation. Associated symptoms include subjective fever and chills, diffuse abdominal pain and inability to hold down any food. She suspect some of this are withdrawal symptoms as she could not tolerate her medications which includes Clonazepam 0.5 mg bid, Dilaudid 8mg ( 2mg 4x/day), and Tramadol 200 mg (50mg 4x/day). She denies any sick contacts or recent travels. She reported some loose stools a few days ago but is not currently constipated. Pt was seen yesterday for the same symptoms and had a negative abdominal CT scan. She reports that she has been unable to keep any of her medications or water down due to the vomiting and returned today. Pt was hospitalized in September for 1 week with similar symptoms, and her symptoms were attributed to opioid induced constipation. Patient suspects her symptoms maybe related to her Clonazepam tapering regimen. Patient wants to completely come off the Clonazepam but she has been on a significant amount for a long time that tapering has been very difficult Case discussed with Dr Arreola, patient had persistent symptoms despite treatments. Dr Arreola visualized patient vomiting out her Dilaudid PO during road testing. Review of Systems: Pertinent positives as noted in HPI. All other systems were reviewed and are negative Allergies Coded Allergies: acetaminophen (Verified Adverse Reaction, Severe, 01/08/17) N/V diphenhydramine (Verified Adverse Reaction, Severe, exacerbates migraines , 10/03/16) droperidol (Verified Adverse Reaction, Severe, 01/08/17) Severe dystonia--stroke-like ketorolac (Verified Adverse Reaction, Severe, 01/08/17) Migraines metoclopramide (Verified Adverse Reaction, Severe, 01/08/17) Dystonic--stoke-like prochlorperazine (Verified Adverse Reaction, Severe, RECEIVED PROMEHTAZINE X1 06/06/16, 01/08/17) Dystonic--stroke-like Uncoded Allergies: ANTIHISTAMINE (Allergy, Unknown, 04/12/14) Antidepressants (Allergy, Unknown, 01/09/17) Home Medications From recent Discharge Summary, not yet confirmed ([Docusate Sodium]) 250 MG CAPSULE 250 MG PO BID Prescribed by: BIANCA MEYER MD Brimonidine Tartrate/Timolol (Combigan Eye Drops) 5 Ml Drops 1 DROP LEFT_EYE BID (Reported) Clonazepam (Clonazepam) 0.5 Mg Tablet 0.5 MG PO QAM (Reported) Clonazepam ODT (Clonazepam ODT) 0.25 Mg Tablet 0.75 MG PO HS (Reported) Take one-0.25mg tab along with one-0.5mg tab for a total of 0.75mg@HS Hydromorphone (Hydromorphone) 2 Mg Tablet 2 MG PO Q6H (Reported) Stagger with tramadol by 3 hours. Begin at 0400. Pantoprazole DR (Pantoprazole DR) 40 Mg Tablet.dr 40 MG PO BIDAC Prescribed by: BIANCA MEYER MD Prazosin (Prazosin) 1 Mg Capsule 5 MG PO HS (Reported) Prednisolone Acetate (Prednisolone Acetate) 5 Ml Drops.susp 1 DROP LEFT_EYE TID (Reported) Psyllium Husk/Aspartame (Metamucil Fiber Singles Packet) 3.4 Gm Powd.pack 1 PACKET PO PCHS Prescribed by: BIANCA MEYER MD Tizanidine (Tizanidine) 4 Mg Tablet 8 MG PO HS (Reported) Tramadol (Tramadol) 50 Mg Tablet 50 MG PO Q6H (Reported) Stagger with Dilaudid by 3 hours, begin @ 0700 As needed Aspirin/Acetaminophen/Caffeine (Tsicdlr-Wdrczphtrbhxg-Xdil Tab) 250 Mg-250 Mg- 65 Mg Tablet 2 EACH PO Q6H PRN PRN Headache (Reported) Clonidine (Clonidine) 0.1 Mg Tablet 0.1 MG PO BID PRN PRN Withdrawal Symptoms ( Reported) Promethazine (Promethazine) 25 Mg Tablet 25 MG PO Q6H PRN PRN For Nausea ( Reported) PMH Chronic pain on chronic narcotics Migraines Episodic intractable nausea and vomiting Corneal dystrophy Fibromyalgia PTSD Panic disorder and chronic anxiety She says she has been told she has a heart murmur . Surgical History 2 C-sections Cholecystectomy Exploratory laparotomy for lysis of adhesions Tubal ligation Bilateral cornea transplant 2015 Negative upper endoscopy in July 2015 by GI Kidney stone removal 2005 Right Retinal surgery 2014 Family History Patient's mother at age 58 from an infection and had a history of serious alcohol abuse. Patient's father is 63 and reasonably healthy, better of late after smoking cessation. Lenore has 1 older brother who smokes and drinks to excess. Social History Hx Alcohol Use: No Hx Substance Use: Yes (prescription narcotics dependance) Hx Tobacco Use: Yes Smoking Status: Former Smoker Exam Vital Signs Vital Sign - Last Date Time Temp Pulse Resp B/P Pulse Ox O2 Delivery O2 Flow Rate FiO2 01/08/17 19:27 90 22 124/73 97 Room Air 01/08/17 14:09 37.4 Exam General: Alert, Oriented X3, Cooperative, No acute Distress Eyes: PERRLA, Scleral Anicteric Mouth: Mouth Normal, Mucous Membranes Moist/[place] Neck: Supple, no Thyromegaly, trachea central. Chest & Lungs: Clear to auscultation & percussion, No adventitious breath sounds, no crackles, no wheeze Cardiovascular: Normal S1, Normal S2, No Murmurs/Rubs/Gallops, Regular Rate/ Rhythm Pulses: Radial (present and equal), Dorsalis Pedi (present and equal) Abdomen: Soft, Non-tender, Non-distended, Normoactive bowel tones. Musculoskeletal: Unremarkable. Normal range of motion, no swollen or erythematous joints Extremities: No edema, no cyanosis, no clubbing. Skin: No rashes. Warm and dry, no erythematous areas Neurological: Grossly neurologically intact, Normal Speech, Sensation Intact Lymphatic: Lymph nodes Cervical and Axillary not palpable Lab and Diagnostics Labs Laboratory Tests Test 01/08/17 14:51 White Blood Count 7.5th/mm3 (3.8-10.1) Red Blood Count 4.22mil/mm3 (3.90-5.20) Hemoglobin 13.2g/dL (12.0-15.6) Hematocrit 38.0% (35.0-46.0) Mean Corpuscular Volume 90.0fL (81-100) Mean Corpuscular Hemoglobin 31.3pg (27.0-35.0) Mean Corpuscular Hemoglobin Concent 34.7% (32.0-37.0) Red Cell Distribution Width 12.5% (12.3-15.4) Platelet Count 327bil/L (150-400) Neutrophils (%) (Auto) 76.1% (40-74) Lymphocytes (%) (Auto) 14.1% (14-46) Monocytes (%) (Auto) 7.0% (4-12) Eosinophils (%) (Auto) 2.0% (0-5) Basophils (%) (Auto) 0.5% (0-3) Sodium Level 144mEq/L (134-144) Potassium Level 3.6mEq/L (3.5-5.2) Chloride Level 106mEq/L (97-108) Carbon Dioxide Level 26mmol/L (18-29) Blood Urea Nitrogen 6mg/dL (6-20) Creatinine 0.73mg/dL (0.57-1.00) Estimat Glomerular Filtration Rate 128mL/min (>59) Glucose Level 81mg/dL (60-99) Calcium Level 9.1mg/dL (8.5-10.1) Magnesium Level 1.8mg/dL (1.6-2.6) Total Bilirubin 0.3mg/dL (0.0-1.2) Aspartate Amino Transf (AST/SGOT) 10U/L (0-50) Alanine Aminotransferase (ALT/SGPT) 8U/L (0-32) Alkaline Phosphatase 97U/L (25-150) Total Protein 6.3g/dL (6.4-8.4) Albumin 4.0g/dL (3.4-5.0) Lipase 53U/L (13-60) Hold Peraza Top Tube Received (Received) Result Diagram: 01/08/17 1451 01/08/17 1451 X-Rays, CTs and MRIs CT ABDOMEN AND PELVIS WITH CONTRAST 01/07 IMPRESSION: No source of abdominal pain is found. A normal or abnormal appendix could not be located. No free fluid is seen throughout the peritoneal space. Prior cholecystectomy. Dictated by: Tom Walter M.D. on 01/07/2017 at 16:33 Approved by: Tom Walter M.D. on 01/07/2017 at 16:35 Assessment & Plan Lenore Dyer is a 36 year old female with PTSD, Chronic pain syndrome with narcotic dependence and fibromyalgia presenting to [facility] emergency department complaining of nausea and vomiting 1. Persistent intractable nausea and vomiting. Present on admission. Ongoing Likely due to opioid and benzodiazepine withdrawal. Differential diagnosis includes Viral Gastroenteritis, Cyclic vomiting syndrome. Bowel obstruction ruled out with CT done 01/07. No elevation of liver function test and Normal Lipase rules out Pancreatitis. Patient was evaluated by Dr Santizo in Sep and had a unremarkable EGD in 2014 - nothing by mouth, advance diet as tolerated - IV fluids resuscitations - treat underlying cause - will use Dilaudid IV and Ativan IV as needed till patient able to tolerate PO 2 Chronic pain syndrome on chronic narcotics Patient does not seem to be in alot of pain currently. - need close follow up with PCP - may need a pain specialist referral 3 Migraines Currently stable with no head aches 4 Panic disorder, PTSD and chronic anxiety - currently on tapering regimen to completed come off Clonazepam - recommended to patient to discuss a different tapering regimen with her PCP 5 Fibromyalgia - She follows Dr Abebe who recommended patient be placed on SNRI she refused stating she is allergic to them - Acetaminophen as needed for mild pain/fever/headache - Bowel regimen as needed - Antiemetic as needed Patient is admitted under observation status with expected length of stay less than 2 midnights due to severity of presenting symptoms, risk of adverse event, and complexity of treatment plan. . Resuscitation Status: CPR: Attempt Resuscitation Otis Meade MD Jan 08, 2017 19:56
[2017-01-08] MEDS: Ondansetron 2 mg/mL 2 mL Inj IVPUSH PRN (21:01)
[2017-01-08] MEDS: 0.9% Sodium Chloride 1,000 ML IV SCH (21:01)
[2017-01-08] MEDS: HYDROmorphone 1 mg/mL Inj IVPUSH PRN (21:57)
[2017-01-08 22:01] VITALS: BP 138/75; PULSE 80; RESP 20; O2SAT 97
--- NOTE | 2017-01-08 22:48 | NUR ---
ADMIT Pt arrived on floor at 2039. Ambulated self to bed, steady gait, pt in bed, talking on phone. Pt requested antiemetic for 8/10 nausea and pain medication for 8/[address] Meade and ordered dilaudid and zofran. Pt states phenergan works better for nausea--spoke with Dr. Meade about this. Pt requesting something to help her sleep, as she can't take tizanidine and prazosin tonight because they are PO. Per Dr. Meade, there are no IV versions so we need to evaluate level of nausea to reassess if pt can take PO. Admit and med rec done. Continuing care.
[2017-01-08] MEDS: Promethazine Inj 25 MG in 0.9% Sodium Chloride 50 ML IV PRN (23:41)
[2017-01-09] VITALS (8 sets, daily range): BP systolic 105–146; BP diastolic 64–91; PULSE 50–97; RESP 16–20; O2SAT 96–100
[2017-01-09] MEDS: Ondansetron 2 mg/mL 2 mL Inj IVPUSH PRN ×6 (01:47→22:04)
[2017-01-09] MEDS: HYDROmorphone 1 mg/mL Inj IVPUSH PRN ×2 (01:48→05:50)
[2017-01-09] MEDS: Promethazine Inj 25 MG in 0.9% Sodium Chloride 50 ML IV PRN ×5 (03:44→20:58)
--- NOTE | 2017-01-09 03:50 | NUR ---
PLAN OF CARE Nausea: Pt receiving 8mg Zofran q4h and Phenergan q4h rotating so pt receives antiemetic q2h. At admit, pt reported 8/10 for nausea. Pt wanted to try ice chips. Pt tolerated this okay--no vomiting. Pt later requested to try pudding. Upon reassessment after pudding, pt stated she ate 1/4 then threw it up. At that time, pt received another phenergan dose. Pt said she wants to try broth next when her nausea is improved. Pain: Pt received 1 mg IV dilaudid q4h. On admit, pt in 8/10 generalized pain. After 1st dose of dilaudid on unit, pt reported 2 hours later she was still in 8/10 pain. Received orders for one time 1mg dilaudid dose. Pt reported this helped for an hour, then pain stays at 7-8/10. Pt reports this same trend throughout the night. Pt understanding of only orders for q4h, but she would like day shift to reevaluate pain regimen. Additionally, pt reported lower right flank/back pain. Pt would like this to be evaluated as well. Continuing care.
[2017-01-09] MEDS: 0.9% Sodium Chloride 1,000 ML IV SCH ×2 (07:47→18:04)
[2017-01-09] MEDS ORDERED: MetoCLOpramide 5 mg/mL 2 mL Inj IVPUSH SCH (08:25)
--- NOTE | 2017-01-09 08:30 | NUR ---
Pain Pt c/o severe 10/10 general body and abdominal pain. Pt does not know if she can wait until the next scheduled Dilaudid dose. Hospitalist notified. PO Dilaudid was ordered, but pt refused, saying that she would not be able to keep it down. Hospitalist notified again and a one time dose of Dilaudid ordered. Pt will now be receiving Dilaudid 2mg IV q2hrs. Will continue to monitor its effectiveness.
[2017-01-09] MEDS ORDERED: HYDROmorphone 1 mg/mL Inj IVPUSH ONE (09:00)
[2017-01-09] MEDS: HYDROmorphone 1 mg/mL Inj IVPUSH SCH ×3 (11:48→23:48)
--- NOTE | 2017-01-09 12:11 | NUR ---
Case Management: [facility] delivered and explained. Signed original placed in chart. Copy left at bedside. Camila Davenport RN
--- NOTE | 2017-01-09 13:15 | PCM.PNMED ---
Subjective Date of Service Jan 09, 2017 Subjective pt was tearful, c/o severe 10/10 pain, throughout, more on abdomen not controlled with dilaudid 1mg, still nauseated but no vomiting since yesterday, has dysuria, denied frequency urgency remained afebrile HD stable, Exam Vital Signs Vital Sign - Last Date Time Temp Pulse Resp B/P Pulse Ox O2 Delivery O2 Flow Rate FiO2 01/09/17 07:41 37.0 81 16 116/66 96 Room Air Intake and Output 01/08/17 01/08/17 01/09/17 Cumulative From/Thru 15:00 23:00 07:00 01/08/17 14:09 - 01/08/17 22:17 Intake Total 2000 ml 2000 ml Balance 2000 ml 2000 ml IV Total 2000 ml 2000 ml # Voids 1 1 Exam NAD, comfortably laying down on the bed no JVD, MMM, no LAD RRR, nl s1, s2 no mrg CTAB, no w,c S,diffuse tenderness, normoactive BS+ warm, no edema, pulses 2/2 IVs and Medications Medications Reviewed: Medications were reviewed in detail Lab and Diagnostics Result Diagram: 01/08/17 1451 01/08/17 1451 X-Rays, CTs and MRIs CT ABDOMEN AND PELVIS WITH CONTRAST 01/07 IMPRESSION: No source of abdominal pain is found. A normal or abnormal appendix could not be located. No free fluid is seen throughout the peritoneal space. Prior cholecystectomy. Dictated by: Tom Walter M.D. on 01/07/2017 at 16:33 Approved by: Tom Walter M.D. on 01/07/2017 at 16:35 Assessment & Plan Lenore Dyer is a 36 year old female with PTSD, Chronic pain syndrome with narcotic dependence and fibromyalgia presenting to [facility] emergency department complaining of nausea and vomiting 1. Persistent intractable nausea and vomiting. Present on admission. Ongoing, Likely due to opioid and benzodiazepine withdrawal, possible gastroparesis or viral gastroenteritis given acute onset. Labs were unremarkable for GI fluid loss. -continue IVF -will continue home dose of dilaudid iv, tramadol po, as long as pt can tolerate po -clear liquid advance as tolerate -phenergan iv prn, avoid reglan, benadryl given documented allergy 2 Chronic pain syndrome on chronic narcotics, uncontrolled mainly due to acute problem as above - need close follow up with PCP - may need a pain specialist referral 3 Migraines Currently stable with no head aches 4 Panic disorder, PTSD and chronic anxiety - currently on tapering regimen to completed come off Clonazepam - recommended to patient to discuss a different tapering regimen with her PCP 5 Fibromyalgia - She follows Dr Abebe who recommended patient be placed on SNRI she refused stating she is allergic to them - Acetaminophen as needed for mild pain/fever/headache - Bowel regimen as needed - Antiemetic as needed dispo: likely 1-2more days once symptoms more controlled, dvt ppx: LMWH FC VTE Mechanical Devices: Intermittant Pneumatic CD Resuscitation Status: CPR: Attempt Resuscitation Time spent 35min Farrah Gunderson MD Jan 09, 2017 09:17
--- NOTE | 2017-01-09 13:36 | NUR ---
NUTRITION ASSESSMENT Assess: 35 YO F admitted for intractable N/V, diarrhea, likely opiod/benzo withdrawal per MD notes. Diet advanced to full liquids today. Noted pt to have lost weight, however per PMHx, wt fairly stable. PMHX: Chronic pain, migraines, episodic N/V, corneal dystrophy, fibromyalgia, panic disorder, PTSD, anxiety. DIET: Full liquids. No po recorded LABS: Reviewed. Alb 4.0 MEDICATIONS: Reviewed. GI: No BM noted. Diarrhea improved per notes. SKIN: Kei 19 WEIGHT: 74.5kg; BMI 28.2; (09/2016): 70.5 kg, ESTIMATED NEEDS: Calories: 1356-8764 kcal/day (25-30 kcal/kg BW) Protein: 60-90 g/day (0.8-1.2 g/kg BW) NUTRITION DIAGNOSIS: 1) No diagnosis at this time. INTERVENTION: 1) Add supplements while on full liquid diet to meet 100% estimated needs. MONITOR/EVALUATE: PO intake, diet advance/tolerance, labs, GI/nutrition status. Follow per moderate nutrition risk guidelines.
[2017-01-09 14:04] LABS: APPEARANCE,URINE HAZY (CLEAR,HAZY); COLOR,URINE STRAW (YELLOW); OCCULT BLOOD,URINE NEGATIVE (NEGATIVE); UROBILINOGEN,URINE NORMAL (NORMAL)
[2017-01-10] MEDS: Promethazine Inj 25 MG in 0.9% Sodium Chloride 50 ML IV PRN ×4 (01:00→21:29)
[2017-01-10] MEDS: 0.9% Sodium Chloride 1,000 ML IV SCH ×2 (02:24→20:02)
[2017-01-10] MEDS: Ondansetron 2 mg/mL 2 mL Inj IVPUSH PRN ×2 (02:29→06:31)
[2017-01-10 05:16] VITALS: PULSE 71
[2017-01-10] MEDS: HYDROmorphone 1 mg/mL Inj IVPUSH SCH (05:19)
[2017-01-10 06:53] LABS: BASOPHILS % (AUTO) 0.7 % (0-3); EOSINOPHILS % (AUTO) 2.7 % (0-5); MONOCYTES % (AUTO) 5.9 % (4-12); Mean Corpuscular Hemoglobin 30.3 pg (27.0-35.0); Mean Corpuscular Volume 91.3 fL (81-100); NEUTROPHILS % (AUTO) 50.7 % (40-74); Platelet Count 314 bil/L (150-400)
--- NOTE | 2017-01-10 07:13 | NUR ---
Nausea/Vomiting Pt continues with intermitteny N/V, prn antiemetics effective per pt report, pt able to hold saltines and broth down tonight.
[2017-01-10 07:19] LABS: Magnesium 1.5 mg/dL (1.6-2.6); Phosphorus 5.5 mg/dL (2.5-4.9)
[2017-01-10] MEDS ORDERED: Magnesium Sulf 2 Gm/50mL Water 2 GM in IV Premix 1 EACH IV ONE (07:25)
[2017-01-10] MEDS ORDERED: Potassium Chloride Inj 30 MEQ in Dextrose 5% 500 ML IV ONE (07:25)
[2017-01-10 09:19] VITALS: BP 106/70; PULSE 80; RESP 14; O2SAT 98
[2017-01-10 10:07] VITALS: PULSE 72
--- NOTE | 2017-01-10 12:32 | PCM.PNMED ---
Subjective Date of Service Jan 10, 2017 Subjective pt looked more comfortable, was on dilaudid iv, however, still had n/v overnight, couldn't take oral tramadol not on any diet yet no BM Exam Vital Signs Vital Sign - Last Date Time Temp Pulse Resp B/P Pulse Ox O2 Delivery O2 Flow Rate FiO2 01/10/17 10:07 72 01/10/17 09:19 36.5 14 106/70 98 Room Air Intake and Output 01/09/17 01/09/17 01/10/17 Cumulative From/Thru 15:00 23:00 07:00 01/08/17 14:09 - 01/10/17 06:35 Intake Total 1020 ml 1194 ml 1700 ml 5914 ml Output Total 1775 ml 3000 ml 4775 ml Balance 1020 ml -581 ml -1300 ml 1139 ml Intake Oral 120 ml 237 ml 350 ml 707 ml IV Total 900 ml 957 ml 1350 ml 5207 ml Output Urine Total 1725 ml 3000 ml 4725 ml Emesis 50 ml 50 ml # Voids 2 3 Exam NAD, comfortably laying down on the bed no JVD, MMM, no LAD RRR, nl s1, s2 no mrg CTAB, no w,c S,diffuse tenderness, normoactive BS+ warm, no edema, pulses 2/2 IVs and Medications Medications Reviewed: Medications were reviewed in detail Lab and Diagnostics Result Diagram: 01/10/17 0635 01/10/17 0635 X-Rays, CTs and MRIs CT ABDOMEN AND PELVIS WITH CONTRAST 01/07 IMPRESSION: No source of abdominal pain is found. A normal or abnormal appendix could not be located. No free fluid is seen throughout the peritoneal space. Prior cholecystectomy. Dictated by: Tom Walter M.D. on 01/07/2017 at 16:33 Approved by: Tom Walter M.D. on 01/07/2017 at 16:35 Assessment & Plan Lenore Dyer is a 36 year old female with PTSD, Chronic pain syndrome with narcotic dependence and fibromyalgia presenting to [facility] emergency department complaining of nausea and vomiting 1. Persistent intractable nausea and vomiting. Present on admission. Ongoing, Likely due to opioid and benzodiazepine withdrawal, possible gastroparesis or viral gastroenteritis given acute onset. Labs were unremarkable for GI fluid loss. -pt is clinically improving but still in nausea, vomiting -continue IVF -will continue home dose of dilaudid po, tramadol po, as long as pt can tolerate po -clear liquid advance as tolerate -phenergan po standing, avoid reglan, benadryl given documented allergy 2 Chronic pain syndrome on chronic narcotics, uncontrolled mainly due to acute problem as above - need close follow up with PCP - may need a pain specialist referral 3 Migraines Currently stable with no head aches 4 Panic disorder, PTSD and chronic anxiety - currently on tapering regimen to completed come off Clonazepam - recommended to patient to discuss a different tapering regimen with her PCP 5 Fibromyalgia - She follows Dr Abebe who recommended patient be placed on SNRI she refused stating she is allergic to them - Acetaminophen as needed for mild pain/fever/headache - Bowel regimen as needed - Antiemetic as needed dispo: likely 1-2more days once symptoms more controlled, dvt ppx: LMWH Full code VTE Mechanical Devices: Intermittant Pneumatic CD Resuscitation Status: CPR: Attempt Resuscitation Time spent 35min Farrah Gunderson MD Jan 10, 2017 12:32
[2017-01-10] MEDS: HYDROmorphone 1 mg/mL Inj IVPUSH PRN ×4 (13:19→23:13)
--- NOTE | 2017-01-10 13:50 | DRSVH ---
PROCEDURE: X-RAY KUB ([id number]) INDICATIONS: illeus chronic opioid abuse TECHNIQUE: One view of the abdomen acquired. COMPARISON: None. FINDINGS: Surgical changes and devices: Cholecystectomy clips. Bowel: Bowel gas pattern is normal. Soft tissues: No suspicious abdominal calcifications. Visualized solid organ contours appear normal in size. Bones: No suspicious bony lesions. IMPRESSION: No acute disease process. No definite evidence of bowel obstruction. Dictated by: Hodan Ruby MD, PhD on 01/10/2017 at 13:48 Approved by: Hodan Ruby MD, PhD on 01/10/2017 at 13:49
[2017-01-10 14:01] VITALS: BP 114/72; PULSE 92; RESP 15; O2SAT 96
--- NOTE | 2017-01-10 14:11 | NUR ---
Social Work Note: Initial Assessment Data& Assessment: EMR reviewed. SW met with pt at bedside to discuss discharge planning, SW role explained. SW phone number provided on pt whiteboard. Lenore Dyer is a 36 year old female admitted on 01/08/2017 for intractable vomiting. Pt sees THUAN Dawson for primary care and has [employer] and Medicare for insurance coverage. Pt lives in [place] with her and children and is independent at baseline with all ADL's. Pt does not use any DME, drives and does not have SNF or HH hx. Pt also does not have VA or LTC insurance. Pt provided with DPOA/Advance Directive paperwork to review and complete when possible. Pt transitioning to IV to P.O medications at this time. Pt ambulating in her room independently. Pt to transport her home when medically ready. Pt denies any other needs at this time. SW to continue to follow if any needs arise. Plan: Anticipated discharge home via POV when medically ready. Pt denies any other needs at this time. SW to continue to follow if any needs arise. RADHA Brumfield Addendum: 01/10/17 at 1415 by IGNACIA WAN Amended: Links added.
--- NOTE | 2017-01-10 15:53 | NUR ---
Pain/Nausea Patient transitioned from IV meds to oral this am but to no avail. PRN Dilaudid given for pain, started on Zofran ODT this pm. Patient educated the importance of weaning IV meds in preparation for discharge. Refused other po meds for the fear of vomiting. Reassured and encouraged to at least try, agreeable and willing. Food and fluid intake encouraged. Will continue to monitor.
[2017-01-10] MEDS ORDERED: Methylnaltrexone 12 mg/0.6 mL Inj SUBQ SCH (16:25)
[2017-01-10 18:40] VITALS: BP 122/74; PULSE 73; RESP 18; O2SAT 97
[2017-01-10 22:00] VITALS: BP 121/78; PULSE 73; RESP 17; O2SAT 98
[2017-01-11] MEDS: Promethazine Inj 25 MG in 0.9% Sodium Chloride 50 ML IV PRN ×2 (01:23→05:40)
[2017-01-11] MEDS: HYDROmorphone 1 mg/mL Inj IVPUSH PRN ×7 (01:30→21:25)
[2017-01-11] MEDS: 0.9% Sodium Chloride 1,000 ML IV SCH (05:30)
[2017-01-11 05:32] VITALS: PULSE 66
[2017-01-11 05:49] VITALS: BP 127/77; PULSE 97
--- NOTE | 2017-01-11 06:03 | NUR ---
Pain/Nausea/Anxiety pt now on scheduled PO Dilaudid to help with pain management, not effective per pt report, hence she received IV pain meds, also pt able to take one dose of ODT zofran to help control nausea not effective per pt report, pt received IV Phenergan instead. Pt noted with moderate anxiety tonight, refused HS scheduled Clonazepam,noted on/off crying and bodily tremors. PO Intake despite pt reports of intermittent nausea, no dry heaves noted tonight, pt able to keep saltine crackers, vanilla pudding, peanut butter and broth, down without vomiting, call light in reach at all times.
[2017-01-11] MEDS: Polyethylene Glycol (PEG) 17 Gm Powder PO SCH ×2 (08:30→11:46)
[2017-01-11 09:59] VITALS: PULSE 65
[2017-01-11] MEDS ORDERED: ONDA4TAB12 PO (10:41)
[2017-01-11] MEDS ORDERED: POLY17PO6 PO (10:41)
[2017-01-11 11:00] VITALS: BP 125/72; PULSE 78; RESP 18; O2SAT 96
[2017-01-11] MEDS: Ondansetron 2 mg/mL 2 mL Inj IVPUSH PRN (14:47)
--- NOTE | 2017-01-11 15:47 | NUR ---
Plan of Care/Refusal of oral meds Patient still reporting uncontrolled pain and nausea. Refusing oral medications and only prefers IV route, able to convinced her to at least try, but after 10-15 minutes later she reports that she threw up again. Patient has been eating and noted that volume of vomitus decreased compared to previous days. Spoke to her and discuss plan of care. He stated that this is an ongoing de la rosa. Patient will manage her disease process at home but, it seems like they are going through this cycle every 3-4 months. She started exhibiting these N/V and pain after the PCP decreased the dosage of her medications. Patient informed that we can not discharge her until she will be able to tolerate oral medication. We will continue to monitor at this time.
[2017-01-11 20:00] VITALS: BP 107/73; PULSE 80; PULSE 91; RESP 16; O2SAT 98
--- NOTE | 2017-01-11 23:48 | PCM.PNMED ---
Subjective Date of Service Jan 11, 2017 Subjective pt has persistent nausea, vomiting, tearful intermittently patient still cannot take po meds, diet well. c/o severe pain throughout, mostly on epigastric area had 1BM small, formed. Exam Vital Signs Vital Sign - Last Date Time Temp Pulse Resp B/P Pulse Ox O2 Delivery O2 Flow Rate FiO2 01/11/17 20:00 80 01/11/17 20:00 36.7 16 107/73 98 Room Air Intake and Output 01/10/17 01/10/17 01/11/17 Cumulative From/Thru 15:00 23:00 07:00 01/08/17 14:09 - 01/11/17 05:49 Intake Total 2158 ml 1045 ml 9117 ml Output Total 2200 ml 1100 ml 8075 ml Balance -42 ml -55 ml 1042 ml Intake Oral 836 ml 1543 ml IV Total 1322 ml 1045 ml 7574 ml Output Urine Total 1500 ml 1100 ml 7325 ml Emesis 700 ml 750 ml # Voids 3 Exam NAD, comfortably laying down on the bed no JVD, MMM, no LAD RRR, nl s1, s2 no mrg CTAB, no w,c S,diffuse tenderness, normoactive BS+ warm, no edema, pulses 2/2 IVs and Medications Medications Reviewed: Medications were reviewed in detail Lab and Diagnostics Result Diagram: 01/10/17 0635 01/11/17 0603 X-Rays, CTs and MRIs CT ABDOMEN AND PELVIS WITH CONTRAST 01/07 IMPRESSION: No source of abdominal pain is found. A normal or abnormal appendix could not be located. No free fluid is seen throughout the peritoneal space. Prior cholecystectomy. Dictated by: Tom Walter M.D. on 01/07/2017 at 16:33 Approved by: Tom Walter M.D. on 01/07/2017 at 16:35 Assessment & Plan Lenore Dyer is a 36 year old female with PTSD, Chronic pain syndrome with narcotic dependence and fibromyalgia presenting to [facility] emergency department complaining of nausea and vomiting 1. Persistent intractable nausea and vomiting. Present on admission. Ongoing, ddx: ileus, gastroenteritis, probable psychosomatic. Labs were unremarkable for GI fluid loss, infection, pancreatitis. UDS was clean for drugs. No new medicine could potentially exacerbate n/v. CT abd 2days prior to admission was benign. -given ongoing unresolving sx, please consider further w/u such as repeat CT, GI consult for EGD although this is not new presentation, pt had multiple visit with similar sx as per EHR. last [id number] was essentially normal. -continue IVF -will continue home dose of dilaudid po, tramadol po, as long as pt can tolerate po -clear liquid advance as tolerate -phenergan po standing, zofran qac, avoid reglan, benadryl given documented allergy -added PPI 40mg iv bid today. 2 Chronic pain syndrome on chronic narcotics, uncontrolled mainly due to acute problem as above - need close follow up with PCP - may need a pain specialist referral 3 Migraines Currently stable with no head aches 4 Panic disorder, PTSD and chronic anxiety - currently on tapering regimen to completed come off Clonazepam - recommended to patient to discuss a different tapering regimen with her PCP 5 Fibromyalgia - She follows Dr Abebe who recommended patient be placed on SNRI she refused stating she is allergic to them - Acetaminophen as needed for mild pain/fever/headache - Bowel regimen as needed - Antiemetic as needed dispo: likely 1-2more days once symptoms more controlled, dvt ppx: LMWH Full code VTE Mechanical Devices: Intermittant Pneumatic CD Resuscitation Status: CPR: Attempt Resuscitation Time spent 35min Farrah Gunderson MD Jan 11, 2017 23:48
[2017-01-11] MEDS ORDERED: Pantoprazole 4 mg/mL 10 mL Inj IVPUSH ONE (23:50)
[2017-01-12] MEDS: Ondansetron 2 mg/mL 2 mL Inj IVPUSH PRN ×3 (00:04→19:42)
[2017-01-12] MEDS: HYDROmorphone 1 mg/mL Inj IVPUSH PRN ×5 (01:21→19:40)
[2017-01-12] MEDS: Promethazine Inj 25 MG in 0.9% Sodium Chloride 50 ML IV PRN (03:23)
[2017-01-12 04:49] VITALS: BP 106/67; PULSE 81
--- NOTE | 2017-01-12 06:28 | NUR ---
Pain/Anxiety/Nausea/Vomiting assumed pt care at 1900 pain management has been tricky tonight, pt c/o almost constant generalized body pain despite po and prn IV meds, pain precipitates nausea/vomiting and "increases" anxiety per pt report, pt able to take her PO scheduled clonazepam tonight, breakthrough anxiety, noted, pt on/off crying, pt vomited x1 undigested food, noted pt constantly seeking/asking anti anxiety and IV narcotic medications, reinforced teaching on getting off IV meds.
[2017-01-12 07:06] LABS: BASOPHILS % (AUTO) 0.4 % (0-3); EOSINOPHILS % (AUTO) 3.5 % (0-5); MONOCYTES % (AUTO) 7.3 % (4-12); Mean Corpuscular Hemoglobin 30.5 pg (27.0-35.0); Mean Corpuscular Volume 92.8 fL (81-100); NEUTROPHILS % (AUTO) 63.4 % (40-74); Platelet Count 324 bil/L (150-400)
[2017-01-12 07:19] LABS: Magnesium 1.9 mg/dL (1.6-2.6); Phosphorus 3.8 mg/dL (2.5-4.9)
[2017-01-12] MEDS: Pantoprazole 4 mg/mL 10 mL Inj IVPUSH SCH ×2 (08:27→16:15)
[2017-01-12] MEDS: Polyethylene Glycol (PEG) 17 Gm Powder PO SCH (08:30)
[2017-01-12 10:19] VITALS: PULSE 77
[2017-01-12 11:21] VITALS: BP 122/80; PULSE 82; RESP 20; O2SAT 97
--- NOTE | 2017-01-12 13:06 | NUR ---
Social Work: Readiness for Discharge D: EMR reviewed. Pt is on day 4 of hospitalization. Per MD in AM multi-disciplinary rounds, pt will discharge today. Pt's spouse to transport home via POV today. Pt denies any discharge needs at this time. SW to continue to follow if any needs arise. A: Pt who is independent at baseline. P: Pt to discharge home today via POV. Pt denies any discharge needs at this time. SW to continue to follow if any needs arise. RADHA Mustafa
--- NOTE | 2017-01-12 15:25 | PCM.PNMED ---
Subjective Date of Service Jan 12, 2017 Subjective met with patient, on cell phone. We spent 10 plus minutes discussing ways to tqper off IV narcotic and benzos. Per nursing staff patient without real emesis except for once with 100 cc, otherwise is just more like spitting up. Exam Vital Signs Vital Sign - Last Date Time Temp Pulse Resp B/P Pulse Ox O2 Delivery O2 Flow Rate FiO2 01/12/17 11:21 37.0 82 20 122/80 97 Room Air Intake and Output 01/11/17 01/11/17 01/12/17 Cumulative From/Thru 15:00 23:00 07:00 01/08/17 14:09 - 01/12/17 04:49 Intake Total 2271 ml 800 ml 36607 ml Output Total 1800 ml 9875 ml Balance 2271 ml -1000 ml 2313 ml Intake Oral 1208 ml 750 ml 3501 ml IV Total 1063 ml 50 ml 8687 ml Output Urine Total 1800 ml 9125 ml Emesis 750 ml # Voids 6 9 # Bowel Movements 1 1 Exam Skin; no rash CV; regular, no murmur Resp; clear anterioraly, GI, soft without any significant tenderness HENT; good hydration Gen; patient sitting up in bed, alert, does not appear to be in any distress during my interview Lab and Diagnostics Result Diagram: 01/12/1718 01/12/17 0618 X-Rays, CTs and MRIs CT ABDOMEN AND PELVIS WITH CONTRAST 01/07 IMPRESSION: No source of abdominal pain is found. A normal or abnormal appendix could not be located. No free fluid is seen throughout the peritoneal space. Prior cholecystectomy. Dictated by: Tom Walter M.D. on 01/07/2017 at 16:33 Approved by: Tom Walter M.D. on 01/07/2017 at 16:35 Assessment & Plan Lenore Dyer is a 36 year old female with PTSD, Chronic pain syndrome with narcotic dependence and fibromyalgia presenting to [facility] emergency department complaining of nausea and vomiting 1. Persistent intractable nausea and vomiting. Present on admission. improving, -continue IVF -will continue home dose of dilaudid po, tramadol po, as long as pt can tolerate po -phenergan po standing, zofran qac, avoid reglan, benadryl given documented allergy 2 Chronic pain syndrome on chronic narcotics, poa, improving -Will change to PO medications, ie. stop IV dilaudid, ativan, and antiemetics -If patient has emesis of significance, re-evaluate, consider small bowl follow through 3 Migraines Currently stable with no head aches 4 Panic disorder, PTSD and chronic anxiety - currently on tapering regimen to completed come off Clonazepam - since the last taper is what patient feels precipitated this episode will increase it back up to 0.75 mg bid 5 Fibromyalgia - stable - Acetaminophen as needed for mild pain/fever/headache - Bowel regimen as needed - Antiemetic as needed dispo: likely 1-2more days once symptoms more controlled, dvt ppx: LMWH Full code VTE Mechanical Devices: Intermittant Pneumatic CD Resuscitation Status: CPR: Attempt Resuscitation Alan Chaudhry MD Jan 12, 2017 15:25
[2017-01-12 16:00] VITALS: BP 120/80; PULSE 80; RESP 20; O2SAT 97
--- NOTE | 2017-01-12 19:15 | NUR ---
Plan of Care Patient informed in order to facilitate discharge she need to be transitioned to oral medications. Disappointed at first but willing to try. Tolerating meals, no active vomiting noted its more of gagging. Will monitor volume of emesis, patient aware. Patient took her scheduled pain and nausea meds this pm. Patient still seeking IV meds despite of education. Dr. Chaudhry aware and have conversation with patient. NOC RN made aware that in case she desperately needed IV meds, they need to contact night hospitalist. Will continue to monitor.
[2017-01-12] MEDS: Methylnaltrexone 12 mg/0.6 mL Inj SUBQ SCH (20:52)
[2017-01-12 21:04] VITALS: BP 115/70; PULSE 79; RESP 18; O2SAT 95
[2017-01-13] VITALS (8 sets, daily range): BP systolic 100–118; BP diastolic 66–72; PULSE 70–80; RESP 16–18; O2SAT 95–99
[2017-01-13] MEDS: HYDROmorphone 1 mg/mL Inj IVPUSH PRN ×5 (01:56→20:21)
[2017-01-13] MEDS: Ondansetron 2 mg/mL 2 mL Inj IVPUSH PRN ×5 (04:18→20:33)
--- NOTE | 2017-01-13 04:37 | NUR ---
Pain/N/V At the beginning of the shift pt puked 30 min after PO Dilaudid and rate pain 10/10 for which pt asked IV medication. Reinforced teaching on getting off IV meds. Paged HS hospitalist and received an order of q6hr IV Dilaudid. pt constantly c/o generalized body pain on rate of 8-10/10. pt has been taking schedule PO and PRN IV Dilaudid. pt pain reduced to 7/10 " better", but didn't reach her goal 6/10. pt puked x2 with an out put of 450ml, and continue to have intermittent nausea throughout the night. IV zofran and PO Phenergan administered and it was helpful per pt report. will continue to monitor and provide care.
[2017-01-13] MEDS: Pantoprazole 4 mg/mL 10 mL Inj IVPUSH SCH ×2 (08:04→16:17)
[2017-01-13] MEDS: Polyethylene Glycol (PEG) 17 Gm Powder PO SCH (08:30)
--- NOTE | 2017-01-13 09:44 | NUR ---
Pain/Nausea Pt has been c/o severe nausea and pain this AM. Pt does not exhibit any objective s/sx of pain, on observation pt appears at ease, but upon entering room pt appearance changes and begins writhing and c/o pain. Pt has also been stating emesis, I have not observed patient actively retching or throwing up, unclear whether contents in emesis bag are emesis or something the patient is filling. Will c/t monitor.
--- NOTE | 2017-01-13 10:02 | PCM.PNMED ---
Subjective Date of Service Jan 13, 2017 Subjective Patient had episodes of emesis last night. Otherwise no problems noted by nursing. I reviewed patient pain with nursing staff who are watching patient very closely for this. There observations is that patient does not exhibit symptoms of pain out of control, rather for the most part she seems comfortable. Exam Vital Signs Vital Sign - Last Date Time Temp Pulse Resp B/P Pulse Ox O2 Delivery O2 Flow Rate FiO2 01/13/17 06:34 36.4 72 18 113/69 97 Room Air Intake and Output 01/12/17 01/12/17 01/13/17 Cumulative From/Thru 15:00 23:00 07:00 01/08/17 14:09 - 01/12/17 19:14 Intake Total 1500 ml 50402 ml Output Total 9875 ml Balance 1500 ml 3813 ml Intake Oral 1400 ml 4901 ml IV Total 100 ml 8787 ml Output Urine Total 9125 ml Emesis 750 ml # Voids 9 # Bowel Movements 1 Exam Skin; no rash, dry CV; regular, no murmur Resp; clear anterioraly, GI, soft without any significant tenderness HENT; good hydration Gen; patient sitting in bed, alert, does not appear to be in any distress during my interview. Lab and Diagnostics Result Diagram: 01/12/1718 01/12/1718 X-Rays, CTs and MRIs CT ABDOMEN AND PELVIS WITH CONTRAST 01/07 IMPRESSION: No source of abdominal pain is found. A normal or abnormal appendix could not be located. No free fluid is seen throughout the peritoneal space. Prior cholecystectomy. Dictated by: Tom Walter M.D. on 01/07/2017 at 16:33 Approved by: Tom Walter M.D. on 01/07/2017 at 16:35 Assessment & Plan Lenore Dyre is a 36 year old female with PTSD, Chronic pain syndrome with narcotic dependence and fibromyalgia presenting to [facility] emergency department complaining of nausea and vomiting 1. Persistent intractable nausea and vomiting. Present on admission. active, -will continue home dose of dilaudid po, tramadol po, as long as pt can tolerate po -phenergan po standing, zofran qac, avoid reglan, benadryl given documented allergy -small bowl follow through 2 Chronic pain syndrome on chronic narcotics, poa, improving -Will change to PO medications, ie. stop IV dilaudid, ativan, and antiemetics -if unable to keep dilaudid down, will substitute 0.5 dilaudid IV which is the equivalent dose to the home dose of 2 mg -If patient has emesis of significance, re-evaluate, consider small bowl follow through 3 Migraines -Currently stable with no head aches 4 Panic disorder, PTSD and chronic anxiety - currently on tapering regimen to completed come off Clonazepam - since the last taper is what patient feels precipitated this episode will increase it back up to 0.75 mg bid 5 Fibromyalgia - stable - Acetaminophen as needed for mild pain/fever/headache - Bowel regimen as needed - Antiemetic as needed dispo: likely 1-2more days once symptoms more controlled, dvt ppx: LMWH Full code VTE Mechanical Devices: Intermittant Pneumatic CD Resuscitation Status: CPR: Attempt Resuscitation Alan Chaudhry MD Jan 13, 2017 10:02
--- NOTE | 2017-01-13 15:03 | NUR ---
Pain/Nausea Cont. When passing by regularly and looking into room, pt will be calmly laying and using cell phone in bed, often talking to someone. Upon entering room, pt will c/t look calm and at ease, but pt does appear to have been crying a lot, eyes are very reddened. Pt states 10/10 generalized fibromyalgia pain. Pt states that her fibromyalgia pain is well managed at home w/ 2mg po dilaudid q6, current regimen is 2mg po q4, but pt states this isn't providing adequate pain relief despite being a higher dose than at home. Pt vital signs have been normal, no bp elevation or pulse elevation. Pt did have emesis 200ml soon after eating lunch so has decided to stop eating. Pt has c/t receive ira promethazine po and iv zofran regularly, pt states minimal relief. Pt states nausea is from uncontrolled pain. Addendum: 01/13/17 at 1556 by DALLIN CEJA RN Checked on pt at 1552, knocked on door loudly and announced entry, pt was sleeping deeply, stirred slightly to voice, but remained in deep sleep.
--- NOTE | 2017-01-13 20:04 | PROG NOTE ---
[address] [address] PROGRESS NOTE PATIENT: LISANDRA MADDOX : 1980 MR#: [id number] ADMIT: 01/08/2017 JOB ID: [id number] DATE: I met again with patient at 6 p.m. I went in with charge nurse on the floor. The patient is not happy about her pain medicines. She wants substantial increases in her pain medicine. She is here for nausea and vomiting that is unremitting and she uses Dilaudid 2 mg four times a day at home orally. The pain that she describes is generalized whole body pain from her fibromyalgia. She says that is worse. Her feeling is if we can give her more narcotics she says that helps the nausea. We did talk obviously as patient is not able to keep food down consistently. We have written an order for Dilaudid 0.5 mg IV push every 4 hours as needed for pain. This is in place and the 2 mg of Dilaudid she takes orally, I have talked with our pharmacist and this is an equivalent dose. At this time, I explained to the patient that we are monitoring very carefully for any signs of pain out of control, I have talked to both the charge nurse and the patient's nurse and they feel throughout the day on multiple spontaneous evaluations of the patient that she does not appear to be in severe pain or any pain out of control. At this time we will continue with the Dilaudid 2 mg orally or 0.5 mg IV every 4 hours as needed for pain. Will continue with her other medications. We do have a small bowel follow-through test ordered for the morning and if her nausea persists we could consider surgical and/or Gastroenterology consultation. At this time, I am uncomfortable increasing patient's narcotics to treat her nausea. 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 At this time. I am going to focus on her nausea and vomiting and replace her chronic pain medicines but not increase them unless we see signs of significant pain or pain out of control.
[2017-01-14] VITALS (14 sets, daily range): BP systolic 83–120; BP diastolic 42–70; PULSE 60–75; RESP 14–20; O2SAT 97–99
[2017-01-14] MEDS: HYDROmorphone 1 mg/mL Inj IVPUSH PRN ×6 (00:21→20:36)
[2017-01-14] MEDS: Ondansetron 2 mg/mL 2 mL Inj IVPUSH PRN ×4 (00:28→14:31)
[2017-01-14] MEDS ORDERED: 0.9% Sodium Chloride 1,000 ML IV ONE ×2 (05:15→06:40)
--- NOTE | 2017-01-14 07:05 | NUR ---
Hypotension Assumed pt care at 1900, at 0430 vitals check Bp 90/50, rechecked 0500 Bp's low to Mid systolic 80's, (see Vitals grid for complete list), pt symptomatic with c/o dizziness, on continuous tele Sinus Rhythm 80's, at 0520 order for NS 1L infused, at 0600 Bp up at 93/55, rechecked at 0629, Bp dropped again at 83/42 and 89/51 pt still c/o dizziness, at 0645 2nd liter of NS started, Bp rechecked at 0655, Bp up to 96/61, bedside hand off done with am nurse. Nausea pt continues to c/o nausea, no noted dry heaves and vomiting tonight.
--- NOTE | 2017-01-14 07:45 | NUR ---
Hypotension Pt's BP still low at 93/56. Pt confirmed that she felt dizzy still. Hospitalist melvin and pt given a bolus of NS 500cc. Will continue to monitor. Addendum: 01/14/17 at 1010 by PAPI GILBERT RN Pt later denies that she was dizzy, and said that she was dizzy earlier.
[2017-01-14] MEDS ORDERED: 0.9% Sodium Chloride 500 ML IV ONE (07:55)
--- NOTE | 2017-01-14 08:30 | NUR ---
Morning meds/pain PO medications held for bowel series. After pt was given IV dilaudid, pt immediately asked for another dose. Hospitalist paged. No change in pain medications at this time. Pt informed.
[2017-01-14 09:11] LABS: EOSINOPHILS % (AUTO) 5.4 % (0-5); MONOCYTES % (AUTO) 6.4 % (4-12); Mean Corpuscular Hemoglobin 30.7 pg (27.0-35.0); Mean Corpuscular Volume 95.3 fL (81-100); NEUTROPHILS % (AUTO) 58.1 % (40-74); Platelet Count 284 bil/L (150-400)
[2017-01-14] MEDS: Pantoprazole 4 mg/mL 10 mL Inj IVPUSH SCH ×2 (09:31→16:34)
[2017-01-14 09:41] LABS: Magnesium 1.8 mg/dL (1.6-2.6); Phosphorus 2.8 mg/dL (2.5-4.9)
--- NOTE | 2017-01-14 10:11 | NUR ---
KIET signed RADHA Lennon
[2017-01-14 11:13] LABS: APPEARANCE,URINE HAZY (CLEAR,HAZY); COLOR,URINE STRAW (YELLOW); OCCULT BLOOD,URINE TRACE (NEGATIVE); UROBILINOGEN,URINE NORMAL (NORMAL)
[2017-01-14] MEDS: Polyethylene Glycol (PEG) 17 Gm Powder PO SCH (11:31)
--- NOTE | 2017-01-14 11:53 | DRSVH ---
PROCEDURE: X-RAY SMALL BOWEL BARIUM STUDY ([id number]) INDICATIONS: persisten emesis COMPARISON: None. 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 No suspicious abdominal calc ifications. Visualized solid organ contours appear normal. No suspicious bony abnormalities. Abigail cystectomy clips. Minimal dextroscoliosis of the mid lumbar spine. Small bowel: There is normal transit time of barium through the small bowel. Small bowel loops are of normal caliber throughout. Mucosal folds are smooth and of normal thickness. No strictures, intr aluminal masses, or extrinsic mass effects are noted. The terminal ileum is not visualized. IMPRESSION: Terminal ileum not visualized secondary to multiple sequestered superimposed bowel loops, otherwise normal small bowel follow-through. Dictated by: Wiley Ovalle [facility] Interpreted: Hodan Ruby MD on 01/14/2017 at 11:32 Approved by: Hodan Ruby MD, PhD on 01/14/2017 at 11:51
--- NOTE | 2017-01-14 12:13 | PCM.PNMED ---
Subjective Date of Service Jan 14, 2017 Subjective Continues to have nausea and vomiting. Was hypotensive overnight and received 2 L of normal saline. Continues to complain of pain and asking if we can increase her Dilaudid dose. Afebrile. No tachycardia or leukocytosis. Elevated LFTs noted. Exam Vital Signs Vital Sign - Last Date Time Temp Pulse Resp B/P Pulse Ox O2 Delivery O2 Flow Rate FiO2 01/14/17 10:12 60 01/14/17 09:40 36.6 20 97/63 97 Room Air Intake and Output 01/13/17 01/13/17 01/14/17 Cumulative From/Thru 15:00 23:00 07:00 01/08/17 14:09 - 01/14/17 05:27 Intake Total 444 ml 700 ml 360 ml 30797 ml Output Total 1275 ml 200 ml 1100 ml 38203 ml Balance -831 ml 500 ml -740 ml 2742 ml Intake Oral 444 ml 600 ml 360 ml 6305 ml IV Total 100 ml 8887 ml Output Urine Total 825 ml 1100 ml 65702 ml Emesis 450 ml 200 ml 1400 ml # Voids 5 14 # Bowel Movements 0 1 Exam Gen. patient is lying comfortably in hospital bed .alert, does not appear to be in any distress during my interview. HEENT: Head is normocephalic atraumatic, Pupils equal and reactive, extraocular movements intact, Lungs clear to auscultation bilaterally Heart regular rate and rhythm without murmurs gallops or rubs Abdomen soft nontender without hepatosplenomegaly Extremities pulses are present dorsalis pedis posterior tibialis and radial. tSkin is warm and dry there are no rashes, Psych alert and oriented to person place and time Neuro cranial nerves II through XII are grossly intact Lymph: There is no lymphadenopathy appreciated in the cervical supra infraclavicular regions : no roberto IVs and Medications Medications Reviewed: Medications were reviewed in detail Lab and Diagnostics Result Diagram: 01/14/17 0850 01/14/17 0850 X-Rays, CTs and MRIs CT ABDOMEN AND PELVIS WITH CONTRAST 01/07 IMPRESSION: No source of abdominal pain is found. A normal or abnormal appendix could not be located. No free fluid is seen throughout the peritoneal space. Prior cholecystectomy. Dictated by: Tom Walter M.D. on 01/07/2017 at 16:33 Approved by: Tom Walter M.D. on 01/07/2017 at 16:35 PROCEDURE: X-RAY SMALL BOWEL BARIUM STUDY ([id number]) INDICATIONS: persisten emesis COMPARISON: None. FINDINGS: KUB: Preprocedural software quality automation engineer film demonstrates a normal bowel gas pattern. No suspicious abdominal calcifications. Visualized solid organ contours appear normal. No suspicious bony abnormalities. Cholecystectomy clips. Minimal dextroscoliosis of the mid lumbar spine. Small bowel: There is normal transit time of barium through the small bowel. Small bowel loops are of normal caliber throughout. Mucosal folds are smooth and of normal thickness. No strictures, intraluminal masses, or extrinsic mass effects are noted. The terminal ileum is not visualized. IMPRESSION: Terminal ileum not visualized secondary to multiple sequestered superimposed bowel loops, otherwise normal small bowel follow-through. Dictated by: Wiley MANCUSO Interpreted: Hodan Ruby MD on 01/14/2017 at 11:32 Assessment & Plan Lenore Dyer is a 36 year old female with PTSD, Chronic pain syndrome with narcotic dependence and fibromyalgia presenting to [facility] emergency department complaining of nausea and vomiting #. Persistent intractable nausea and vomiting. Present on admission. active, -Due to suspected cyclical vomiting syndrome -will continue home dose of dilaudid po, tramadol po, as long as pt can tolerate po -phenergan po standing, zofran qac, avoid reglan, benadryl given documented allergy -small bowl follow unremarkable -Urinalysis done and unremarkable #Transaminitis, new -RUQ requested -hep panel ordered, lipase negative # Hypotension -Due to poor intake and pain medications -IV fluids given, advised to minimize narcotic use as much as possible #Chronic pain syndrome on chronic narcotics, poa, improving -Will change to PO medications, ie. stop IV dilaudid, ativan, and antiemetics -if unable to keep dilaudid down, will substitute 0.5 dilaudid IV which is the equivalent dose to the home dose of 2 mg #Migraines -Currently stable with no head aches #Panic disorder, PTSD and chronic anxiety - currently on tapering regimen to completed come off Clonazepam - since the last taper is what patient feels precipitated this episode will increase it back up to 0.75 mg bid #Fibromyalgia - stable - Acetaminophen as needed for mild pain/fever/headache - Bowel regimen as needed - Antiemetic as needed dispo: likely 1-2more days once symptoms more controlled, dvt ppx: LMWH Full code VTE Mechanical Devices: Intermittant Pneumatic CD Resuscitation Status: CPR: Attempt Resuscitation Ravi Maciel MD Jan 14, 2017 12:13
--- NOTE | 2017-01-14 14:19 | NUR ---
NUTRITION FOLLOW-UP: Assess: 35 YO F admitted for intractable N/V, diarrhea, likely opiod/benzo withdrawal per MD notes. Pt continues to have nausea and vomiting. Small bowel follow through unremarkable per MD note. Diet has been advanced to soft on 01/11 with pt eating 25-50% of meals prior to 01/13. No po intake has been reported 01/13 or 01/14. PMHX: Chronic pain, migraines, episodic N/V, corneal dystrophy, fibromyalgia, panic disorder, PTSD, anxiety. DIET: Soft, Ensure all trays. PO 25-50% of meals prior to 01/13. No po intake has been reported 01/13 or 01/14. LABS: Reviewed. AST 166, ALT 284, Alb 3.3. MEDICATIONS: Reviewed. GI: BM x 1 (01/11) WEIGHT: 74.5 kg; BMI 28.2; (09/2016): 70.5 kg, ESTIMATED NEEDS: Calories: 9254-5419 kcal/day (25-30 kcal/kg BW) Protein: 60-90 g/day (0.8-1.2 g/kg BW) NUTRITION DIAGNOSIS: 1) Inadequate oral intake related to altered GI function as evidenced by complaints of continued nausea and vomiting with po intake of 25-50% of meals. INTERVENTION: 1) Continue to send ensure on all trays. MONITOR/EVALUATE: PO intake, diet tolerance, labs, GI/nutrition status. Follow per moderate nutrition risk guidelines.
--- NOTE | 2017-01-14 15:16 | DRSVH ---
PROCEDURE: US ABDOMEN, LIMITED ([id number]) INDICATIONS: elevated LFTs, TECHNIQUE: Real-time focused scanning was performed of the abdomen, with image documentation. COMPARISON: [facility], CT, CT ABD PELVIS W CON, 01/07/2017, 15:42. FINDINGS: Limited exam demonstrating normal appearance of the liver. Gallbladder has been resected. No biliary dilatation. IMPRESSION: Limited exam demonstrate normal appearance of the liver. Dictated by: Wiley GREGORIOA Interpreted: Hodan Ruby MD on 01/14/2017 at 14:42 Approved by: Hodan Ruby MD, PhD on 01/14/2017 at 15:13
--- NOTE | 2017-01-14 15:18 | NUR ---
Social Work: Continued d/c planning Data: Pt is on day 6 of hospitalization. EMR reviewed, pt discussed in rounds. states that pt is off of IVABX and is on IV pain medications at comparable doses to her home PO medications. SODA DRY HOUSE OPERATOR met with pt at bedside, pt denies any needs at this time. No d/c planning needs at this time. SODA DRY HOUSE OPERATOR will continue to follow if needs arise. Assessment: Pt who is independent at baseline. Plan: Pt will d/c home via POV when medically stable. No d/c planning needs at this time. SODA DRY HOUSE OPERATOR will continue to follow if needs arise. RADHA Lennon
[2017-01-14] MEDS: Methylnaltrexone 12 mg/0.6 mL Inj SUBQ SCH (20:32)
[2017-01-15] MEDS: Ondansetron 2 mg/mL 2 mL Inj IVPUSH PRN (00:23)
[2017-01-15] MEDS: HYDROmorphone 1 mg/mL Inj IVPUSH PRN ×3 (00:23→08:29)
[2017-01-15 00:33] VITALS: BP 110/72; PULSE 74; RESP 18; O2SAT 94
[2017-01-15 02:11] LABS: Hepatitis A Antibody IgM Negative (Negative); Hepatitis B Core Antibody IgM Negative (Negative)
[2017-01-15 03:42] VITALS: PULSE 78
--- NOTE | 2017-01-15 04:51 | NUR ---
PLAN OF CARE Spoke with pt about current and future plan of care to manage fibromyalgia and nausea. Pt expresses desire to be discharged 01/15/17 morning and stated she made an appointment with her PCP 01/15/17 afternoon to follow-up. Pt states "Being here isn't doing anything else for me." Pt said nausea is improved since admission, but pain is not. Pt says she can tolerate PO. When asked if she thinks she can manage her pain with only PO meds since she still uses IV dilaudid and refuses PO, pt stated "I think I can. That's tentative." Pt wants to discuss with PCP slowing down clonazepam taper, as she thinks this is the culprit--"I can see the end and I want to simeon it." Pt said her pain regime in the last 8 months has been effective, but she would like to discuss a new regime as "this one isn't working anymore." This RN gave all IV doses of dilaudid, no PO, per pt request. Pt reports 5/10 nausea at 1930, no heaving or vomiting noted throughout night. Gave one 8mg zofran dose in addition to scheduled phenergan. No other PRNs used. Continuing care.
[2017-01-15] MEDS: Pantoprazole 4 mg/mL 10 mL Inj IVPUSH SCH (06:32)
[2017-01-15 06:45] VITALS: BP 95/61; PULSE 67; RESP 16; O2SAT 95
[2017-01-15 07:45] VITALS: BP 98/61; PULSE 64; RESP 16; O2SAT 99
[2017-01-15 07:56] VITALS: PULSE 65
[2017-01-15 08:21] LABS: BASOPHILS % (AUTO) 0.4 % (0-3); EOSINOPHILS % (AUTO) 3.8 % (0-5); MONOCYTES % (AUTO) 6.4 % (4-12); Mean Corpuscular Hemoglobin 30.5 pg (27.0-35.0); Mean Corpuscular Volume 94.4 fL (81-100); NEUTROPHILS % (AUTO) 67.5 % (40-74); Platelet Count 290 bil/L (150-400)
[2017-01-15] MEDS ORDERED: HYDROmorphone 0.5 mg/0.5 mL iSecure Syringe ONE (08:23)
[2017-01-15] MEDS: Polyethylene Glycol (PEG) 17 Gm Powder PO SCH (08:30)
[2017-01-15 08:42] LABS: Magnesium 1.9 mg/dL (1.6-2.6)
--- NOTE | 2017-01-15 09:02 | PCM.DIMED ---
Discharge Instructions Date of Service Jan 15, 2017 Dates of Hospitalization Jan 08, 2017 at 20:08 Discharge Diagnosis Discharge Diagnosis #. intractable nausea and vomiting. Present on admission. improving -Due to suspected cyclical vomiting syndrome #Transaminitis due to vomiting , improved -hep panel , lipase and RUQ US negative # Hypotension,improved -Due to poor intake and pain medications #Chronic pain syndrome on chronic narcotics, poa, improving #Migraines #Panic disorder, PTSD and chronic anxiety #Fibromyalgia Diet Discharge Diet: No restrictions Activity Discharge Activity: No restrictions Call your provider Call your provider for: Fever or Chills, Shortness of breath, Bleeding, Chest pain, Vomitting, Excessive diarrhea, Weakness (unilateral) Patient Instructions Patient Instructions You were hospitalized due to intractable nausea and vomiting .Etiology remains unclear,likely due to cyclic vomiting syndrome . Please take zofran as needed. please follow up with PCP . Follow-up Provider: Ayse Joel PA-C Follow-up with PCP in: 1 week (she has appt today at 2 PM ) Ravi Maciel MD Jan 15, 2017 09:02
[2017-01-15] MEDS ORDERED: ONDA4TAB9 PO (09:03)
[2017-01-15] MEDS ORDERED: POLY17PO6 PO (09:03)
--- NOTE | 2017-01-15 09:29 | PCM.DC.MED ---
Discharge Summary Date of Service Jan 15, 2017 Dates of Hospitalization Date of Hospital Admission Jan 08, 2017 at 20:08 Date of Discharge: Jan 15, 2017 Providers: Admitting Physician: Otis Meade MD Primary Care Physician: Ayse Joel PA-C Attending Physician: Otis Meade MD Diagnosis at Time of Discharge Diagnosis at Time of Discharge #. intractable nausea and vomiting. Present on admission. improving -Due to suspected cyclical vomiting syndrome #Transaminitis due to vomiting , improved -hep panel , lipase and RUQ US negative # Hypotension,improved -Due to poor intake and pain medications #Chronic pain syndrome on chronic narcotics, poa, improving #Migraines #Panic disorder, PTSD and chronic anxiety #Fibromyalgia Consultations none Procedures XRay, CTs & MRIs CT ABDOMEN AND PELVIS WITH CONTRAST 01/07 IMPRESSION: No source of abdominal pain is found. A normal or abnormal appendix could not be located. No free fluid is seen throughout the peritoneal space. Prior cholecystectomy. Dictated by: Tom Walter M.D. on 01/07/2017 at 16:33 Approved by: Tom Walter M.D. on 01/07/2017 at 16:35 PROCEDURE: X-RAY SMALL BOWEL BARIUM STUDY ([id number]) INDICATIONS: persisten emesis COMPARISON: None. FINDINGS: KUB: Preprocedural double end production grinder film demonstrates a normal bowel gas pattern. No suspicious abdominal calcifications. Visualized solid organ contours appear normal. No suspicious bony abnormalities. Cholecystectomy clips. Minimal dextroscoliosis of the mid lumbar spine. Small bowel: There is normal transit time of barium through the small bowel. Small bowel loops are of normal caliber throughout. Mucosal folds are smooth and of normal thickness. No strictures, intraluminal masses, or extrinsic mass effects are noted. The terminal ileum is not visualized. IMPRESSION: Terminal ileum not visualized secondary to multiple sequestered superimposed bowel loops, otherwise normal small bowel follow-through. Dictated by: Wiley MANCUSO Interpreted: Hodan Ruby MD on 01/14/2017 at 11:32 PROCEDURE: US ABDOMEN, LIMITED ([id number]) INDICATIONS: elevated LFTs IMPRESSION: Limited exam demonstrate normal appearance of the liver. Dictated by: Wiley MANCUSO Interpreted: Hodan Ruby MD on 01/14/2017 at 14:42 PROCEDURE: X-RAY SMALL BOWEL BARIUM STUDY ([id number]) INDICATIONS: persisten emesis IMPRESSION: Terminal ileum not visualized secondary to multiple sequestered superimposed bowel loops, otherwise normal small bowel follow-through. Dictated by: Wiley Ovalle RRA Interpreted: Hodan Ruby MD on 01/14/2017 at 11:32 Brief History per HPI Lenore Dyer is a 36 year old female with PTSD, Chronic pain syndrome with narcotic dependence and fibromyalgia presenting to [facility] emergency department complaining of nausea and vomiting onset 4 days ago. She denies any hematemesis or constipation. Associated symptoms include subjective fever and chills, diffuse abdominal pain and inability to hold down any food. She suspect some of this are withdrawal symptoms as she could not tolerate her medications which includes Clonazepam 0.5 mg bid, Dilaudid 8mg ( 2mg 4x/day), and Tramadol 200 mg (50mg 4x/day). She denies any sick contacts or recent travels. She reported some loose stools a few days ago but is not currently constipated. Pt was seen yesterday for the same symptoms and had a negative abdominal CT scan. She reports that she has been unable to keep any of her medications or water down due to the vomiting and returned today. Pt was hospitalized in September for 1 week with similar symptoms, and her symptoms were attributed to opioid induced constipation. Patient suspects her symptoms maybe related to her Clonazepam tapering regimen. Patient wants to completely come off the Clonazepam but she has been on a significant amount for a long time that tapering has been very difficult Case discussed with Dr Arreola, patient had persistent symptoms despite treatments. Dr Arreola visualized patient vomiting out her Dilaudid PO during road testing. Hospital Course Lenore Dyer is a 36 year old female with PTSD, Chronic pain syndrome with narcotic dependence and fibromyalgia presenting to [facility] emergency department complaining of nausea and vomiting #. Persistent intractable nausea and vomiting. Present on admission. active, -Due to suspected cyclical vomiting syndrome -will continue home dose of dilaudid po, tramadol po, -phenergan po standing, zofran qac, avoid reglan, benadryl given documented allergy -small bowl follow unremarkable -Urinalysis done and unremarkable #Transaminitis, new -RUQ unremarkable -hep panel negative, lipase negative # Hypotension, improved, improved -Due to poor intake and pain medications -IV fluids given, advised to minimize narcotic use as much as possible #Chronic pain syndrome on chronic narcotics, poa, improving -Will change to PO medications, ie. stop IV dilaudid, ativan, and antiemetics -Patient states she is mostly in pain 10 out of 10 but does not appear to be in distress or pain. Explained to patient narcotics are not recommended for fibromyalgia. PCP may need to try to wean her off narcotics. Called PCP and discussed my concern. #Migraines -Currently stable with no head aches #Panic disorder, PTSD and chronic anxiety - currently on tapering regimen to completly come off Clonazepam - since the last taper is what patient feels precipitated this episode will increase it back up to 0.75 mg bid #Fibromyalgia - stable - Acetaminophen as needed for mild pain/fever/headache - Bowel regimen as needed - Antiemetic as needed Disposition: Discharged home Condition on discharge stable and improved Patient has appointment with PCP later today Exam Vital Signs (Last) Date Time Temp Pulse Resp B/P Pulse Ox O2 Delivery O2 Flow Rate FiO2 01/15/17 07:56 65 01/15/17 07:45 36.6 16 98/61 99 Room Air Exam Gen. patient is lying comfortably in hospital bed .alert, does not appear to be in any distress during my interview. HEENT: Head is normocephalic atraumatic, Pupils equal and reactive, extraocular movements intact, Lungs clear to auscultation bilaterally Heart regular rate and rhythm without murmurs gallops or rubs Abdomen soft nontender without hepatosplenomegaly Extremities pulses are present dorsalis pedis posterior tibialis and radial. tSkin is warm and dry there are no rashes, Psych alert and oriented to person place and time Neuro cranial nerves II through XII are grossly intact Lymph: There is no lymphadenopathy appreciated in the cervical supra infraclavicular regions : no roberto Test 01/08/17 14:51 01/09/17 13:40 01/12/17 06:18 01/14/17 08:50 Hold Peraza Top Tube Received (Received) Urine Opiates Screen Negative Urine Methadone Screen Negative Urine Barbiturates Screen Negative Urine Amphetamines Screen Negative Urine Benzodiazepines Screen Negative Urine Cocaine Metabolite Screen Negative Urine Cannabinoids Screen Negative Human Chorionic Gonadotropin, Qual <0.500 (Negative) Lactic Acid Level 0.8mmol/L (0.4-2.0) Phosphorus Level 2.8mg/dL (2.5-4.9) Lipase 16U/L (13-60) Procalcitonin 0.07ng/mL (0.00-0.08) Test 01/14/17 10:12 01/14/17 12:45 01/15/17 08:05 Urine Color Straw (YELLOW) Urine Appearance Hazy (CLEAR,HAZY) Urine pH 7.0 (5.0-8.0) Urine Specific [employer] 1.005 (1.003-1.035) Urine Protein Negativemg/dL (NEG,TRACE) Urine Glucose (UA) Negativemg/dL (NEGATIVE) Urine Ketones Negativemg/dL (NEGATIVE) Urine Occult Blood Trace (NEGATIVE) Urine Nitrite Negative (NEGATIVE) Urine Bilirubin Negative (NEGATIVE) Urine Urobilinogen Normalmg/dL (NORMAL) Urine Leukocyte Esterase Negative (NEGATIVE) Urine RBC 0-2/hpf (0-2) Urine WBC 0-5/hpf (0-5) Urine Epithelial Cells Occasional/hpf (NONE-MOD) Urine Crystals None seen (NONE SEEN) Urine Bacteria Moderate/hpf (NONE-FEW) Urine Hyaline Casts None/lpf (NONE) Urine Granular Casts None seen (NONE SEEN) Urine Waxy Casts None seen (NONE SEEN) Urine Red Blood Cell Casts None seen (NONE SEEN) Urine White Blood Cell Casts None seen (NONE SEEN) Urine Mucus None seen (None Seen) Urine Trichomonas None seen (NONE SEEN) Urine Yeast None (NONE SEEN) Urinalysis Comment None Urine Culture Reflexed Indicated Hepatitis A IgM Antibody Negative (Negative) Hepatitis B Surface Antigen Negative (Negative) Hepatitis B Core IgM Antibody Negative (Negative) Hepatitis C Antibody <0.1s/co ratio (0.0-0.9) Hepatitis C Comment Comment (.) White Blood Count 7.9th/mm3 (3.8-10.1) Red Blood Count 4.30mil/mm3 (3.90-5.20) Hemoglobin 13.1g/dL (12.0-15.6) Hematocrit 40.6% (35.0-46.0) Mean Corpuscular Volume 94.4fL (81-100) Mean Corpuscular Hemoglobin 30.5pg (27.0-35.0) Mean Corpuscular Hemoglobin Concent 32.3% (32.0-37.0) Red Cell Distribution Width 12.3% (12.3-15.4) Platelet Count 290bil/L (150-400) Neutrophils (%) (Auto) 67.5% (40-74) Lymphocytes (%) (Auto) 21.5% (14-46) Monocytes (%) (Auto) 6.4% (4-12) Eosinophils (%) (Auto) 3.8% (0-5) Basophils (%) (Auto) 0.4% (0-3) Sodium Level 140mEq/L (134-144) Potassium Level 4.8mEq/L (3.5-5.2) Chloride Level 104mEq/L (97-108) Carbon Dioxide Level 26mmol/L (18-29) Blood Urea Nitrogen 9mg/dL (6-20) Creatinine 0.81mg/dL (0.57-1.00) Estimat Glomerular Filtration Rate 114mL/min (>59) Glucose Level 99mg/dL (60-99) Calcium Level 8.6mg/dL (8.5-10.1) Magnesium Level 1.9mg/dL (1.6-2.6) Total Bilirubin 0.2mg/dL (0.0-1.2) Aspartate Amino Transf (AST/SGOT) 56U/L (0-50) Alanine Aminotransferase (ALT/SGPT) 197U/L (0-32) Alkaline Phosphatase 133U/L (25-150) Total Protein 5.9g/dL (6.4-8.4) Albumin 3.7g/dL (3.4-5.0) Discharge Medications Discharge Medications Brimonidine Tartrate/Timolol (Combigan Eye Drops) 5 Ml Drops 1 DROP LEFT_EYE BID (Reported) Clonazepam (Clonazepam) 0.5 Mg Tablet 0.5 MG PO QAM (Reported) Clonazepam ODT (Clonazepam ODT) 0.25 Mg Tablet 0.75 MG PO HS (Reported) Take one-0.25mg tab along with one-0.5mg tab for a total of 0.75mg@HS Hydromorphone (Hydromorphone) 2 Mg Tablet 2 MG PO QID (Reported) Stagger with tramadol by 3 hours. Begin at 0400. Prazosin (Prazosin) 1 Mg Capsule 5 MG PO HS (Reported) Prednisolone Acetate (Prednisolone Acetate) 5 Ml Drops.susp 1 DROP LEFT_EYE TID (Reported) Psyllium Husk/Aspartame (Metamucil Fiber Singles Packet) 3.4 Gm Powd.pack 1 PACKET PO PCHS Prescribed by: BIANCA MEYER MD Tizanidine (Tizanidine) 4 Mg Tablet 8 MG PO HS (Reported) Tramadol (Tramadol) 50 Mg Tablet 50 MG PO QID (Reported) Stagger with Dilaudid by 3 hours, begin @ 0700 As needed Aspirin/Acetaminophen/Caffeine (Hhirwab-Mdwahvhssbjqg-Olak Tab) 250 Mg-250 Mg- 65 Mg Tablet 2 EACH PO Q6H PRN PRN Headache (Reported) Clonidine (Clonidine) 0.1 Mg Tablet 0.1 MG PO BID PRN PRN Withdrawal Symptoms ( Reported) Ondansetron ODT (Zofran ODT) 4 Mg Tablet 4 MG PO Q4H PRN PRN For Nausea Prescribed by: JERILYN JAMES MD Polyethylene Glycol 3350 (Miralax) 17 Gm Powd.pack 17 GM PO DAILY PRN PRN For Constipation Prescribed by: JERILYN JAMES MD Promethazine (Promethazine) 25 Mg Tablet 25 MG PO Q6H PRN PRN For Nausea ( Reported) Promethazine HCl (Phenergan) 50 Mg Supp.rect 50 MG RC QID PRN PRN For Nausea Prescribed by: THUAN AYALA Followup Plan Disposition: Home Discharge Diet: No restrictions Discharge Activity: No restrictions Patient Instructions You were hospitalized due to intractable nausea and vomiting .Etiology remains unclear,likely due to cyclic vomiting syndrome . Please take zofran as needed. please follow up with PCP . Follow-up Provider: Ayse Joel PA-C Follow-up with PCP in: 1 week (she has appt today at 2 PM ) Time spent 35 minutes copies to: Ayse Joel PA-C, Melaku MD Jan 15, 2017 09:29
[2017-01-15 10:41] VITALS: BP 105/68; PULSE 83
--- NOTE | 2017-01-15 11:14 | NUR ---
DISCHARGE At the start of the shift patient stated that she wanted to be discharged today since she has an appointment with her PCP to fill her prescription today. Patient refused scheduled Phenergan stating that it is too harsh for her tummy. She has scheduled Dilaudid PO for pain but patient refused it and requested the IV instead. Patient stated that her pain is between 8-10/10 in her abdomen. No wincing noted upon abdominal palpation when doing my assessments. She stated that her pain is still there after the pain medication. Via FELDT scale patients pain level is 0/10 after her medication. Laying comfortably in bed. Patient ate 25 % of her breakfast. No emesis noted. Still refused to take her Phenergan. Patient has been ambulating independently in the room. Gait is steady. Voiding without any problems. Dr. Maciel updated this morning RE: Patients progress. IV saline lock d/cd. Discharge instructions, care notes and prescription was given to the patient and she verbalized understanding. Discharged to home with all her personal belongings. (Copy of D/C is in the chart).
--- NOTE | 2017-01-15 11:35 | NUR ---
Social Work: Discharge D: EMR reviewed. Pt is on day 7 of hospitalization. EMR reviewed. Per MD in AM multi-disciplinary rounds, pt is no longer on IVABX. SW met with pt at bedside, pt denies any needs at this time. SW does not anticipate any discharge needs at this time. SW will continue to follow if needs arise. A: Pt who is independent at baseline. P: Pt will discharge home today via POV. SW does not anticipate any discharge needs at this time. SW will continue to follow if needs arise. RADHA Mustafa
== END 2017-01-15 11:00 | disposition home or self-care (01) | DRG 103 ==
LOC: SED 14:08 → INTOOBSV 20:08 → OBSVTOIN 20:08 → MOC 20:08
PROVIDERS: ADMIT Hospitalist; ATTEND Hospitalist
DX: G43.A0 Cyclical vomiting, in migraine, not intractable (principal); M79.7 Fibromyalgia; F43.10 Post-traumatic stress disorder, unspecified; F41.0 Panic disorder [episodic paroxysmal anxiety]; G89.4 Chronic pain syndrome; G43.909 Migraine, unspecified, not intractable, without status migrainosus; Z87.891 Personal history of nicotine dependence; Z79.891 Long term (current) use of opiate analgesic; Z79.82 Long term (current) use of aspirin